=== PATIENT | male | born 1955 | race Caucasian/White ===

== ENCOUNTER 2017-07-28 08:19 | Inpatient (IN) | payer OTHER ==
[2017-07-28 09:26] LABS: BASOPHIL 0.1 % (0-2.0); EOSINOPHIL 3.7 % (0-4.5); MCH 33.3 pg (25.7-33.7); MCHC 34.2 g/dl (32.0-35.9); MEAN CELL VOLUME 97.2 fl (80-96); MEAN PLT VOLUME 7.8 fl (7.5-11.1); NEUTROPHILS 62.4 % (42.8-82.8); PLATELET COUNT 215 K/MM3 (134-434); RDW 12.1 % (11.9-15.9); WHITE BLOOD COUNT 8.6 K/mm3 (4.0-10.8)
--- NOTE | 2017-07-28 09:34 | PDOC ---
History of Present Illness - General Chief Complaint: Shortness of Breath Stated Complaint: dizziness,sob,diaphoretic,ruq pain Time Seen by Provider: 07/28/17 08:21 - History of Present Illness Initial Comments: 07/28/17 09:42 62 M with h/o HTN, HLD, CAD/OH s/p stent in 2011 on plavix, H pylori, presenting to ER with lightheadedness and weakness since last night. Pt states that he is typically an active person who plays tennis regularly. However, last night he began to feel extremely weak. He reports getting short of breath with minimal activity, feeling fatigued just walking to the TV. Pt denies CP. Denies any SOB at rest. Denies leg swelling. Denies F/C. Pt also endorses dark stools x 3 days. He is currently on an herbal colon cleanse, which he reports has given him discolored stools in the past. He has not had colonoscopy or EGD in recent years. Has not been treated for H pylori recently. Past History - Past Medical History Allergies/Adverse Reactions: Allergies Allergy/AdvReac Type Severity Reaction Status Date / Time iodine [Iodine] Allergy Rash Verified 07/28/17 08:23 Home Medications: Ambulatory Orders Atorvastatin Ca [Lipitor (Restricted To Cardiology)] 80 mg PO HS 01/29/12 Lisinopril [Prinivil] 10 mg PO DAILY 03/09/12 Aspirin [ASA] 125 mg PO DAILY 04/08/12 Nebivolol [Bystolic] 10 mg PO HS 04/08/12 Antiox #11/Om3/Dha/Epa/Lut/Joe [Eye Health Adult 50+ Softgel] 1 each PO Brain Boost 07/28/17 Clopidogrel Bisulfate [Plavix -] 75 mg PO DAILY 07/28/17 Herbal Drugs [Colon Herbal Cleanser] 1 each PO 07/28/17 Liver Cleans 07/28/17 Cardiac Disorders: Yes (OH X 4 YEARS AGO) HTN: Yes Hypercholesterolemia: Yes Thyroid Disease: Yes - Surgical History Cardiac Surgery: Yes (CATH,STENT X 1) - Suicide/Smoking/Psychosocial Hx Smoking Status: No Smoking History: Former smoker Years of Tobacco Use: 6 Have you smoked in the past 12 months: No Number of Cigarettes Smoked Daily: 20 If you are a former smoker, when did you quit?: at the age of 18 Information on smoking cessation initiated: No Hx Alcohol Use: Yes (daily 5 beers and wine and beer on weekends) Drug/Substance Use Hx: No Substance Use Type: None Hx Substance Use Treatment: No Review of Systems - Review of Systems Comments:: 07/28/17 09:45 "GENERAL/CONSTITUTIONAL: +weakness, No fever or chills. HEAD, EYES, EARS, NOSE AND THROAT: No change in vision. No ear pain or discharge. No sore throat. CARDIOVASCULAR: No chest pain or shortness of breath. RESPIRATORY: +dyspnea on exertion, No cough, wheezing, or hemoptysis. GASTROINTESTINAL: No nausea, vomiting, diarrhea or constipation. GENITOURINARY: No dysuria, frequency, or change in urination. MUSCULOSKELETAL: No joint or muscle swelling or pain. No neck or back pain. SKIN: No rash NEUROLOGIC: No headache, vertigo, loss of consciousness, or change in strength/ sensation. ENDOCRINE: No increased thirst. No abnormal weight change. HEMATOLOGIC/LYMPHATIC: No anemia, easy bleeding, or history of blood clots. ALLERGIC/IMMUNOLOGIC: No hives or skin allergy. " *Physical Exam - Vital Signs Last Vital Signs Temp Pulse Resp BP Pulse Ox 97.9 F 71 16 159/91 100 07/28/17 08:21 07/28/17 09:27 07/28/17 09:27 07/28/17 09:27 07/28/17 09:27 - Physical Exam Comments: 07/28/17 09:46 "GENERAL: Awake, alert, and fully oriented, in no acute distress HEAD: No signs of trauma EYES: PERRLA, EOMI, sclera anicteric, conjunctiva clear ENT: Auricles normal inspection, hearing grossly normal, nares patent, oropharynx clear without exudates. Moist mucosa NECK: Nontender, no stepoffs, Normal ROM, supple, no lymphadenopathy, JVD, or masses LUNGS: Breath sounds equal, clear to auscultation bilaterally. No wheezes, and no crackles HEART: Regular rate and rhythm, normal S1 and S2, no murmurs, rubs or gallops ABDOMEN: Soft, nontender, normoactive bowel sounds. No guarding, no rebound. No masses EXTREMITIES: Normal range of motion, no edema. No clubbing or cyanosis. No cords, erythema, or tenderness NEUROLOGICAL: Cranial nerves II through XII intact. 5/5 strength and sensation in all extremities, Normal speech, normal gait SKIN: Warm, Dry, normal turgor, no rashes or lesions noted. RECTAL: dark stools, no hematochezia " Heart Score/ECG Review - History History: Moderately suspicious - Electrocardiogram EKG: Non specific repolarization disturbance - Age Age: 45-65 - Risk Factors Risk Factors Heart Score: Yes Hx Hypercholesterolemia, Yes Hx Hypertension Based on the list above the patient has:: >/=3 risk factors or Hx atherosclerotic disease - ECG Impressions Comment:: 07/28/17 09:47 NSR, no MARK/STDs, TWI in I and AVL present, not seen on prior EKG in 2011. Left axis deviation, QRS widening ED Treatment Course - LABORATORY CBC & Chemistry Diagram: 07/29/17 15:00 07/29/17 05:45 - ADDITIONAL ORDERS Additional order review: 07/28/17 09:00 RBC 3.23 L D MCV 97.2 H MCHC 34.2 RDW 12.1 MPV 7.8 D Neutrophils % 62.4 Lymphocytes % 24.3 Monocytes % 9.5 Eosinophils % 3.7 Basophils % 0.1 - RADIOLOGY Radiology Studies Ordered: Category Date Time Status CHEST PA & LAT [RAD] Stat Radiology 07/28/17 09:09 Ordered Medical Decision Making - Medical Decision Making 07/28/17 09:47 62 M with weakness, fatigue, and dyspnea on exertion since last night. Pt with no chest pain, but must r/o OH, as pt has h/o prior OH and new lateral TWI on today's EKG. Also consider symptomatic anemia 2/2 GI bleed given h/o dark stools on plavix. Pt with no PE risk factors and is anticoagulated. No tachypnea , tachycardia, or hypoxia in ER, so PE is unlikely. Will evaluate for infectious process with CXR and UA. - Labs, trop, BNP - Stool guaiac - CXR - Admit to tele 07/28/17 11:01 Pt with guaiac + dark stool. Elevated BUN to Cr ratio suggestive of likely upper GI source. Trop negative. PPI started, will admit for UGIB. Dr. Farr, GI police surgeon, to evaluate pt for EGD. Admitted to hospitalist. Case discussed in detail with admitting physician including history, physical exam and ancillary studies. Admitting physician has assumed care for the patient and will follow all pending diagnostics and complete the evaluation and treatment. *DC/Admit/Observation/Transfer Diagnosis at time of Disposition: Upper GI bleed - Discharge Dispostion Admit: Yes - Attestations Physician Attestion: 07/28/17 11:02 I, Dr. Yossi Ibarra MD, attest that this document has been prepared under my direction and personally reviewed by me in its entirety. I further attest, that it accurately reflects all work, treatment, procedures and medical decision -making performed by me.
[2017-07-28 09:47] LABS: INR 1.06 (0.82-1.09); PROTHROMBIN TIME (PATIENT) 11.8 SEC (10.2-13.0)
[2017-07-28 09:48] LABS: ALBUMIN 3.7 g/dl (3.5-5.0); ALK PHOS 47 U/L (32-92); ANION GAP 6 (8-16); CALCIUM 10.4 mg/dl (8.4-10.2); CO2 27 mmol/L (22-28); CPK 182 IU/L (39-308); CREATININE 0.8 mg/dl (0.6-1.3); GLUCOSE,RANDOM 117 mg/dl (74-106); SGOT/AST 26 U/L (10-42); SGPT/ALT 31 U/L (10-40); TOT PROT 5.7 g/dl (6.4-8.3)
[2017-07-28 09:51] LABS: STOOL FOR OCCULT BLOOD POSITIVE (NEGATIVE)
[2017-07-28] MEDS ORDERED: PANTOPRAZOLE SODIUM 40 MG in SODIUM CHLORIDE 100 ML IVPB ONE (09:53)
[2017-07-28] MEDS ORDERED: PANTOPRAZOLE SODIUM 40 MG VIAL ONE (09:55)
[2017-07-28 10:04] LABS: URINE APPEARANCE Clear; URINE BILIRUBIN Negative (NEGATIVE); URINE BLOOD Negative (NEGATIVE); URINE GLUCOSE (UA) Negative (NEGATIVE); URINE KETONE Negative (NEGATIVE); URINE LEUK ESTERASE Negative (NEGATIVE); URINE NITRITE Negative (NEGATIVE); URINE PROTEIN Negative (NEGATIVE); URINE UROBILINOGEN 0.2 (0.2-1.0)
[2017-07-28 10:07] LABS: URINE COLOR YELLOW
[2017-07-28 10:26] LABS: TROPONIN I (DFP) < 0.03 ng/ml (0.03-0.50)
[2017-07-28] MEDS ORDERED: SODIUM CHLORIDE 1,000 ML IV STA (10:29)
--- NOTE | 2017-07-28 12:02 | HP ---
CHIEF COMPLAINT: CARETR,dizziness and weakness PCP: GI Dr. [place] cardiology Dr. Powers HISTORY OF PRESENT ILLNESS: presenting to ER with lightheadedness and weakness since last night. Pt states that he is typically an active person who plays tennis regularly. However, last night he began to feel extremely weak. He reports getting short of breath with minimal activity, feeling fatigued just walking to the TV. Pt denies CP. Denies any SOB at rest. Denies leg swelling. Denies F/ Pt also endorses dark stools x 3 days. He is currently on an herbal colon cleanse, which he reports has given him discolored stools in the past. He has not had colonoscopy or EGD in recent years. Has not been treated for H pylori recently. This is a 62 M with h/o HTN, HLD, CAD/[place] s/p stent in 2011 on Plavix,hx of H pylori, GERD, who presents to ER complains of worsening lightheadedness, weakness, CARTER with minimal activity,palpitations,diaphoresis,mild RUQ pain and chronic GERD symptoms,denies cp, N/V/D,urinary symptoms,urinary symptoms or rectal bleed. Pt also reports of having dark stool for the last 3 days, currently on an herbal colon cleanse, which he reports has discolored stools in the past. Denies recent EGD/ colonoscopy. ER course was notable for: (1)CxR: No acute pathology (2)EKG: SR with T wave inversion (3) Stool OB - positive Recent Travel: No PAST MEDICAL HISTORY: See above PAST SURGICAL HISTORY: deviated septal sx > 10 yrs ago Social History: Smoking:None Alcohol: Yes- 3 cans of beer daily and half a bottle of wine every other day Drugs: None Family History: Father : Bleeding stomack ulcer, HTN, Smoker Mother : HTN, DM, HDL, and cataract Brother - Had WI with stent Maternal grandfather - WI Allergies iodine [Iodine] Allergy (Verified 07/28/17 08:23) Rash HOME MEDICATIONS: Home Medications Medication Instructions Recorded Atorvastatin Ca [Lipitor 80 mg PO HS 01/29/12 (Restricted To Cardiology)] Lisinopril [Prinivil] 10 mg PO DAILY 03/09/12 Aspirin [ASA] 125 mg PO DAILY 04/08/12 Nebivolol [Bystolic] 10 mg PO HS 04/08/12 Antiox #11/Om3/Dha/Epa/Lut/Joe 1 each PO 07/28/17 [Eye Health Adult 50+ Softgel] Brain Boost 07/28/17 Clopidogrel Bisulfate [Plavix -] 75 mg PO DAILY 07/28/17 Herbal Drugs [Colon Herbal 1 each PO 07/28/17 Cleanser] Liver Cleans 07/28/17 REVIEW OF SYSTEMS CONSTITUTIONAL: C/o generalized weakness Absent: fever, chills, diaphoresis, malaise, loss of appetite, weight change HEENT: Absent: rhinorrhea, nasal congestion, throat pain, throat swelling, difficulty swallowing, mouth swelling, ear pain, eye pain, visual changes CARDIOVASCULAR: Absent: chest pain, syncope, palpitations, irregular heart rate, lightheadedness , peripheral edema RESPIRATORY: + dyspnea with exertion Absent: cough, shortness of breath, , orthopnea, wheezing, stridor, hemoptysis GASTROINTESTINAL: Absent: abdominal pain, abdominal distension, nausea, vomiting, diarrhea, constipation, melena, hematochezia GENITOURINARY: Absent: dysuria, frequency, urgency, hesitancy, hematuria, flank pain, genital pain MUSCULOSKELETAL: Absent: myalgia, arthralgia, joint swelling, back pain, neck pain SKIN: Absent: rash, itching, pallor HEMATOLOGIC/IMMUNOLOGIC: Absent: easy bleeding, easy bruising, lymphadenopathy, frequent infections ENDOCRINE: Absent: unexplained weight gain, unexplained weight loss, heat intolerance, cold intolerance NEUROLOGIC: Absent: headache, focal weakness or paresthesias, dizziness, unsteady gait, seizure, mental status changes, bladder or bowel incontinence PSYCHIATRIC: Absent: anxiety, depression, suicidal or homicidal ideation, hallucinations. PHYSICAL EXAMINATION Vital Signs - 24 hr 07/28/17 07/28/17 07/28/17 08:21 09:27 10:37 Temperature 97.9 F Pulse Rate 58 L Pulse Rate [ 71 62 Apical] Respiratory 15 16 16 Rate Blood Pressure 138/85 Blood Pressure 159/91 120/80 [Arm] O2 Sat by Pulse 100 100 100 Oximetry (%) GENERAL: Awake, alert, and fully oriented, in no acute distress. HEAD: Normal with no signs of trauma. EYES: Pupils equal, round and reactive to light, extraocular movements intact, sclera anicteric, conjunctiva clear. No lid lag. EARS, NOSE, THROAT: Ears normal, nares patent, oropharynx clear without exudates. Moist mucous membranes. NECK: Normal range of motion, supple without lymphadenopathy, JVD, or masses. LUNGS: Breath sounds equal, clear to auscultation bilaterally. No wheezes, and no crackles. No accessory muscle use. HEART: Regular rate and rhythm, normal S1 and S2 without murmur, rub or gallop. ABDOMEN: Soft, nontender, not distended, normoactive bowel sounds, no guarding, no rebound, no masses. No hepatomegaly or splenomegaly. MUSCULOSKELETAL: Normal range of motion at all joints. No bony deformities or tenderness. No CVA tenderness. UPPER EXTREMITIES: 2+ pulses, warm, well-perfused. No cyanosis. No clubbing. No peripheral edema. LOWER EXTREMITIES: 2+ pulses, warm, well-perfused. No calf tenderness. No peripheral edema. NEUROLOGICAL: Cranial nerves II-XII intact. Normal speech. Normal gait. PSYCHIATRIC: Cooperative. Good eye contact. Appropriate mood and affect. SKIN: Warm, dry, normal turgor, no rashes or lesions noted, normal capillary refill. Laboratory Results - last 24 hr 07/28/17 07/28/17 07/28/17 09:00 09:00 09:00 WBC 8.6 RBC 3.23 L D Hgb 10.7 L D Hct 31.4 L D MCV 97.2 H MCH 33.3 MCHC 34.2 RDW 12.1 Plt Count 215 MPV 7.8 D Neutrophils % 62.4 Lymphocytes % 24.3 Monocytes % 9.5 Eosinophils % 3.7 Basophils % 0.1 PT with INR 11.8 INR 1.06 PTT (Actin FS) 25.0 L Sodium 134 L Potassium 4.2 Chloride 101 Carbon Dioxide 27 Anion Gap 6 L BUN 47 H D Creatinine 0.8 Creat Clearance w eGFR > 60 Random Glucose 117 H Calcium 10.4 H Total Bilirubin 1.0 D AST 26 D ALT 31 D Alkaline Phosphatase 47 Creatine Kinase 182 Creatine Kinase Index 2.6 CK-MB (CK-2) 4.9 H Troponin I < 0.03 L Total Protein 5.7 L Albumin 3.7 Lipase Urine Color Urine Appearance Urine pH Ur Specific [place] Urine Protein Urine Glucose (UA) Urine Ketones Urine Blood Urine Nitrite Urine Bilirubin Urine Urobilinogen Ur Leukocyte Esterase Stool Occult Blood 07/28/17 07/28/17 09:00 09:25 WBC RBC Hgb Hct MCV MCH MCHC RDW Plt Count MPV Neutrophils % Lymphocytes % Monocytes % Eosinophils % Basophils % PT with INR INR PTT (Actin FS) Sodium Potassium Chloride Carbon Dioxide Anion Gap BUN Creatinine Creat Clearance w eGFR Random Glucose Calcium Total Bilirubin AST ALT Alkaline Phosphatase Creatine Kinase Creatine Kinase Index CK-MB (CK-2) Troponin I Total Protein Albumin Lipase 24 Urine Color Yellow Urine Appearance Clear Urine pH 7.0 Ur Specific [place] 1.020 Urine Protein Negative Urine Glucose (UA) Negative Urine Ketones Negative Urine Blood Negative Urine Nitrite Negative Urine Bilirubin Negative Urine Urobilinogen 0.2 Ur Leukocyte Esterase Negative Stool Occult Blood Positive ASSESSMENT/PLAN: This is a 62 M with h/o HTN, HLD, CAD/[place] s/p stent in 2011 on Plavix,hx of H pylori and GERD,who presents to ER c/o worsening weakness, dizziness,CARTER, palpitations,diaphoresis,mild RUQ pain and chronic GERD symptoms,denies cp, N/V/ D,urinary symptoms or urinary symptoms. * GI bleed - stool OB positive in ER - will hold off on ASA, plavix - started on PPI - GI consulted - for EGD today - will keep pt NPO - CBC stable now - 10.7/31.4 (baseline in 2011 14.9) will f/u on CBC - consent obtained for blood transfusion * HTN will continue on home meds , Lisinopril and Bystolic - will monitor BP closely * HDL- will resume on Statin once PO sathya well * CAD, s/p stent in 2011 -will cont on BB, Statin - will hold off on ASA, Plavix in view of GI bleed - telemetry monitoring - EKG- SR - T wave inversion - asymptomatic - will check serial cardiac enzymes - out pt cardiology Dr. Powers F/E/N: IV hydration VTE prophylaxis - SCD in view of bleeding. Visit type - Emergency Visit Emergency Visit: Yes Care time: The patient presented to the Emergency Department on the above date and was hospitalized for further evaluation of their emergent condition. - New Patient This patient is new to me today: Yes Date on this admission: 07/28/17 - Critical Care Critical Care patient: No
--- NOTE | 2017-07-28 12:19 | CON.GI ---
Consult Consult Specialty:: GI Referred by:: Dr Ibarra Reason for Consultation:: upper GI bleeding, acute blood loss anemia - History of Present Illness History of Present Illness: A 62 yo male who came to ED with c/o fatigue and lightheadedness on standing up. No chest pain, nausea, vomiting, palpations, diaphoresis, or numbness. On questioning reports 3 days of dark, tarry stools. Deneis maria teresa hematocheziam hematemesis, diarrhea, dysphasia, odynophagia. Reports history of H. pylori infection about 20 y. ago. Takes daily NSAIDs for pains and aches, and tums at night for "acid reflux". No significant weight loss. No history of colonoscopy. - History Source History Provided By: Patient - Past Medical History Cardio/Vascular: Yes: [place] Gastrointestinal: Yes: Other (h. pylori infection 20 y ago) Hepatobiliary: No: Cirrhosis, Cholelithiasis, Hepatitis B, Hepatitis C - Past Surgical History Additional Surgical History: EGD 20 y ago - Alcohol/Substance Use Hx Alcohol Use: Yes (daily 5 beers and wine and beer on weekends) - Smoking History Smoking history: Former smoker Have you smoked in the past 12 months: No Aproximately how many cigarettes per day: 20 If you are a former smoker, when did you quit?: at the age of 18 Home Medications - Allergies Allergies/Adverse Reactions: Allergies Allergy/AdvReac Type Severity Reaction Status Date / Time iodine [Iodine] Allergy Rash Verified 07/28/17 08:23 - Home Medications Home Medications: Ambulatory Orders Atorvastatin Ca [Lipitor (Restricted To Cardiology)] 80 mg PO HS 01/29/12 Lisinopril [Prinivil] 10 mg PO DAILY 03/09/12 Aspirin [ASA] 125 mg PO DAILY 04/08/12 Nebivolol [Bystolic] 10 mg PO HS 04/08/12 Antiox #11/Om3/Dha/Epa/Lut/Joe [Eye Health Adult 50+ Softgel] 1 each PO Brain Boost 07/28/17 Clopidogrel Bisulfate [Plavix -] 75 mg PO DAILY 07/28/17 Herbal Drugs [Colon Herbal Cleanser] 1 each PO 07/28/17 Liver Cleans 07/28/17 Family Disease History - Family Disease History Family History: Unremarkable Review of Systems - Review of Systems Constitutional: reports: Malaise, Weakness. denies: Chills, Diaphoresis, Fever , Lethargy, Loss of Appetite, Night Sweats, Unintentional Wgt. Loss Eyes: reports: No Symptoms HENT: reports: No Symptoms Neck: reports: No Symptoms Respiratory: denies: Cough, SOB, SOB on Exertion, Wheezing Gastrointestinal: reports: Indigestion, Melena. denies: Abdominal Pain, Bloating, Constipation, Diarrhea, Dysphagia, Nausea, Rectal Bleeding, Vomiting, Vomiting Blood Musculoskeletal: reports: Joint Pain (takes NSAIDs) Neurological: denies: Syncope, Unsteady Gait Hematology/Lymphatic: denies: Easily Bruised, Excessive Bleeding Physical Exam-GI Vital Signs: Vital Signs Temperature 97.9 F 07/28/17 08:21 Pulse Rate 62 07/28/17 10:37 Respiratory Rate 16 07/28/17 10:37 Blood Pressure 120/80 07/28/17 10:37 O2 Sat by Pulse Oximetry (%) 100 07/28/17 10:37 Constitutional: Yes: Well Nourished, No Distress, Calm Eyes: Yes: Conjunctiva Clear HENT: Yes: Atraumatic Neck: Yes: Supple Cardiovascular: Yes: Regular Rate and Rhythm Respiratory: Yes: Regular Gastrointestinal Inspection: No: Distention ...Auscultate: Yes: Normoactive Bowel Sounds ...Palpate: Yes: Soft. No: Firm/Rigid, Guarding, Mass, Pulsatile Mass, Splenomegaly, Tenderness Musculoskeletal: Yes: WNL Extremities: Yes: WNL Neurological: Yes: Alert, Oriented Labs: CBC, BMP 07/28/17 09:00 07/28/17 09:00 INR, PTT INR 1.06 (0.82-1.09) 07/28/17 09:00 Laboratory Tests 07/28/17 07/28/17 07/28/17 09:00 09:00 09:00 WBC 8.6 RBC 3.23 L D Hgb 10.7 L D Hct 31.4 L D MCV 97.2 H MCH 33.3 MCHC 34.2 RDW 12.1 Plt Count 215 MPV 7.8 D Neutrophils % 62.4 Lymphocytes % 24.3 Monocytes % 9.5 Eosinophils % 3.7 Basophils % 0.1 PT with INR 11.8 INR 1.06 PTT (Actin FS) 25.0 L Sodium 134 L Potassium 4.2 Chloride 101 Carbon Dioxide 27 Anion Gap 6 L BUN 47 H D Creatinine 0.8 Creat Clearance w eGFR > 60 Random Glucose 117 H Calcium 10.4 H Total Bilirubin 1.0 D AST 26 D ALT 31 D Alkaline Phosphatase 47 Creatine Kinase 182 Creatine Kinase Index 2.6 CK-MB (CK-2) 4.9 H Troponin I < 0.03 L Total Protein 5.7 L Albumin 3.7 Lipase Urine Color Urine Appearance Urine pH Ur Specific [place] Urine Protein Urine Glucose (UA) Urine Ketones Urine Blood Urine Nitrite Urine Bilirubin Urine Urobilinogen Ur Leukocyte Esterase Stool Occult Blood 07/28/17 07/28/17 09:00 09:25 WBC RBC Hgb Hct MCV MCH MCHC RDW Plt Count MPV Neutrophils % Lymphocytes % Monocytes % Eosinophils % Basophils % PT with INR INR PTT (Actin FS) Sodium Potassium Chloride Carbon Dioxide Anion Gap BUN Creatinine Creat Clearance w eGFR Random Glucose Calcium Total Bilirubin AST ALT Alkaline Phosphatase Creatine Kinase Creatine Kinase Index CK-MB (CK-2) Troponin I Total Protein Albumin Lipase 24 Urine Color Yellow Urine Appearance Clear Urine pH 7.0 Ur Specific [place] 1.020 Urine Protein Negative Urine Glucose (UA) Negative Urine Ketones Negative Urine Blood Negative Urine Nitrite Negative Urine Bilirubin Negative Urine Urobilinogen 0.2 Ur Leukocyte Esterase Negative Stool Occult Blood Positive Problem List - Problems (1) Gastrointestinal hemorrhage with melena Code(s): K92.1 - MELENA (2) NSAID long-term use Code(s): Z79.1 - CRIME ANALYST (CURRENT) USE OF NON-STEROIDAL NON-INFLAM (NSAID) (3) Anemia associated with acute blood loss Code(s): D62 - ACUTE POSTHEMORRHAGIC ANEMIA (4) Duodenal hemorrhage Code(s): K92.2 - GASTROINTESTINAL HEMORRHAGE, UNSPECIFIED (5) Esophagitis determined by endoscopy Code(s): K20.9 - ESOPHAGITIS, UNSPECIFIED Assessment/Plan s/p EGD with control of bleeding 2 5 mm shallow, bulb/1st portion actively oozing from visible vessel ulcers found and injected with a total of 12 cc 1:10,000 epi. Complete hemostasis was achieved. Resolution clips, despite multiple attempts, could not be deployed due to ulcers specifically difficult location. Admit to ICU for, at least, 24 hours observation. Continue PPI IV and keep NPO today CBC today and in AM Stop all NSAIDs Discussed with the patent and his
[2017-07-28] MEDS ORDERED: EPINEPHrine/PF 1 MG/1 ML (1:1,000) AMPULE ONE ×2 (13:07→13:08)
[2017-07-28] MEDS ORDERED: PROPOFOL 20 ML ONE ×2 (13:09→13:31)
--- NOTE | 2017-07-28 14:13 | PROC ---
Endoscopy Procedure Endoscopy procedure completed. Please see scanned procedure report.
[2017-07-28 15:00] LABS: MCH 33.5 pg (25.7-33.7); MCHC 34.4 g/dl (32.0-35.9); MEAN CELL VOLUME 97.4 fl (80-96); MEAN PLT VOLUME 7.3 fl (7.5-11.1); PLATELET COUNT 196 K/MM3 (134-434); RDW 12.2 % (11.9-15.9); WHITE BLOOD COUNT 11.6 K/mm3 (4.0-10.8)
--- NOTE | 2017-07-28 16:48 | CONSULT ---
Consultation: REQUESTING PROVIDER: Dr. Farr CONSULT REQUEST: We have been asked to medically evaluate this patient for s/p EGD for GI bleed. HISTORY OF PRESENT ILLNESS: Patient is a 62 year old male with a PMHx of HTN, HLD, CAD s/p ME w/ stents five years ago on Plavix, H.Pylori who presented with lightheadedness and weakness that started suddenly last night. Patient then states feeling short of breath and fatigued with minimal activity associated with diaphoresis and palpitations. Patients reports similar symptoms in the past when he had an ME 5 years ago, which prompted this hospital visit. Patient also reports having dark colored stools for the last three days, however, he states having dark stools when taking an herbal colon cleanse, which he is currently taking. Patient does admit to daily use of NSAIDS for years now due to "feeling sore" at the end of the day due to his job, which requires him to move around excessively. Patient states taking 4 Aleve's every other day and Excedrin almost daily with daily coffee. Patient states having EGD/Colonoscopy over 10 years ago. Patient was taken to the OR for EGD and was found to have two 5mm shallow bleeding ulcers in the bulb and 1st portion but unsuccessful clipping due to the locations. However, complete hemostasis was achieved with epi injection. Otherwise, patient denies chest pain, leg pain, hematemesis, loss of consciousness, acute vision loss. Patient admitted to the ICU for 24 hour observation. REVIEW OF SYSTEMS: CONSTITUTIONAL: Present: diaphoresis, generalized weakness, malaise Absent: fever, chills, loss of appetite, weight change HEENT: Absent: rhinorrhea, nasal congestion, throat pain, throat swelling, difficulty swallowing, mouth swelling, ear pain, eye pain, visual changes CARDIOVASCULAR: Present: palpitations, lightheadedness Absent: chest pain, syncope, irregular heart rate, peripheral edema RESPIRATORY: Present: shortness of breath, dyspnea with exertion Absent: cough, orthopnea, wheezing, stridor, hemoptysis GASTROINTESTINAL: Present: abdominal pain, melena Absent: abdominal distension, nausea, vomiting, diarrhea, constipation, hematochezia GENITOURINARY: Absent: dysuria, frequency, urgency, hesitancy, hematuria, flank pain, genital pain MUSCULOSKELETAL: Absent: myalgia, arthralgia, joint swelling, back pain, neck pain SKIN: Absent: rash, itching, pallor HEMATOLOGIC/IMMUNOLOGIC: Absent: easy bleeding, easy bruising, lymphadenopathy, frequent infections ENDOCRINE: Absent: unexplained weight gain, unexplained weight loss, heat intolerance, cold intolerance NEUROLOGIC: Absent: headache, focal weakness or paresthesias, dizziness, unsteady gait, seizure, mental status changes, bladder or bowel incontinence PSYCHIATRIC: Absent: anxiety, depression, suicidal or homicidal ideation, hallucinations. PHYSICAL EXAMINATION Vital Signs - 24 hr 07/28/17 07/28/17 07/28/17 13:50 13:55 14:00 Temperature 97.5 F L 97.5 F L 97.5 F L Pulse Rate 68 62 61 Respiratory 19 19 20 Rate Blood Pressure 133/31 140/74 127/49 O2 Sat by Pulse 100 100 100 Oximetry (%) 07/28/17 07/28/17 07/28/17 14:05 14:15 14:30 Temperature 97.5 F L 97.5 F L 97.5 F L Pulse Rate 59 L 58 L 54 L Respiratory 23 21 17 Rate Blood Pressure 108/47 96/47 90/45 O2 Sat by Pulse 100 100 100 Oximetry (%) GENERAL: Awake, alert, and fully oriented, in no acute distress. HEAD: Normal with no signs of trauma. EYES: Pupils equal, round and reactive to light, extraocular movements intact, sclera anicteric, conjunctiva clear. EARS, NOSE, THROAT:Oropharynx clear without exudates. Moist mucous membranes. NECK: Normal range of motion, supple without lymphadenopathy, JVD, or masses. LUNGS: Breath sounds equal, clear to auscultation bilaterally. No wheezes, and no crackles. No accessory muscle use. HEART: Regular rate and rhythm, normal S1 and S2 without murmur, rub or gallop. ABDOMEN: Soft, nontender, not distended, normoactive bowel sounds, no guarding, no rebound, no masses. No hepatomegaly or splenomegaly. MUSCULOSKELETAL: No bony deformities or tenderness. No CVA tenderness. UPPER EXTREMITIES: No peripheral edema. LOWER EXTREMITIES: No peripheral edema. NEUROLOGICAL: Cranial nerves II-XII intact. Normal speech. Motor strength 5/5 bilaterally, sensory intact PSYCHIATRIC: Cooperative. Good eye contact. Appropriate mood and affect. SKIN: Warm, dry, normal turgor, no rashes or lesions noted. Laboratory Results - last 24 hr 07/28/17 14:55 WBC 11.6 H D RBC 2.53 L D Hgb 8.5 L D Hct 24.6 L D MCV 97.4 H MCH 33.5 MCHC 34.4 RDW 12.2 Plt Count 196 MPV 7.3 L Active Medications Generic Name Dose Route Start Last Admin Trade Name Freq PRN Reason Stop Dose Admin Atorvastatin Calcium 80 mg 07/29/17 22:00 Lipitor - PO HS RAYNA Chlorhexidine Gluconate 1 applic 07/28/17 22:00 Hibiclens For Decolonization - TP HS [facility] Sodium Chloride 1,000 mls @ 75 mls/hr 07/28/17 12:45 Normal Saline - IV ASDIR RAYNA Lisinopril 10 mg 07/29/17 10:00 Prinivil PO DAILY RAYNA Mupirocin 1 applic 07/28/17 22:00 Bactroban Ointment (For Decolonization) - NS 08/02/17 21:59 BID RAYNA Nebivolol 10 mg 07/29/17 10:00 Bystolic - PO DAILY RAYNA Pantoprazole Sodium 40 mg 07/28/17 22:00 Protonix Iv IVPUSH 07/31/17 23:59 BID RAYNA IMAGES: ASSESSMENT/PLAN: Patient is a 62 year old male with a PMHx of H.Pylori, GERD, Chronic NSAID use and CAD on Plavix who presented for dizziness, weakness, shortness of breath, dyspnea on exertion, and dark bloody stools. Patient was taken to the OR for EGD and was found to have two duodenal ulcers. Patient admitted to ICU for further monitoring and management. Neuro -AAOx3 Gastroenterology #Upper GI Bleed Secondary to 2 Bleeding Duodenal Ulcers -S/P EGD with complete hemostasis achieved -Continue protonix 40mg BID -Continue IV NS @75mls/hr -Hold ASA and Plavix. No Anticoagulations -Avoid all NSAIDS -Keep NPO overnight and may resume clears in the morning. -CBC stable prior to procedure (H&H 10.7/31.4). Repeat CBC and troponins now. Then again in the morning Cardiology #CAD s/p ME/stents 5 years ago -Hold ASA and Plavix due to GI bleed -Will continue NICANOR inhibitor and Beta andrez -Serial Troponins ordered -Continuous cardiac monitoring #HTN-controlled -Continue Lisinopril 10mg daily -Continue Bystolic 10mg daily -Continue to monitor BP #HLD -Continue Lipitor 80mg daily Hematology #Anemia secondary to acute blood loss -Hemoglobin and Hematocrit on initial presentation 10.7/31.4. Repeat CBC after procedure 8.5/24.6. Second repeat 8.8/25.6 -Another repeat CBC ordered -If hemoglobin <8.0, will transfuse PRBC -Continue to monitor for any GI bleed and serial CBC's. Pulmonology -No history of COPD/Emphysema -02 PRN -Maintain 02 >95% F/E/N -IV NS @75mls/hr -Electrolytes wnl -NPO overnight and clear liquids in the morning Prophylaxis -Low risk due to GI bleed. SCD's for DVT. Hold all AC -Protonix 40mg IVP BID for GI Disposition -Full code -Will monitor overnight for any bleeds. Repeat cardiac enzymes and CBC Visit type - Emergency Visit Emergency Visit: Yes ED Registration Date: 07/28/17 Care time: The patient presented to the Emergency Department on the above date and was hospitalized for further evaluation of their emergent condition. - New Patient This patient is new to me today: Yes Date on this admission: 07/28/17 - Critical Care Critical Care patient: Yes Total Critical Care Time (in minutes): 45 Critical Care Statement: The care of this patient involved high complexity decision making to prevent further life threatening deterioration of the patient 's condition and/or to evaluate & treat vital organ system(s) failure or risk of failure.
[2017-07-28 16:55] VITALS: BMI 28.7
[2017-07-28] MEDS ORDERED: FLU VACCINE QUAD 60 MCG/0.5 ML (MDV 17-18) IM ONE (16:55)
[2017-07-28] MEDS: SODIUM CHLORIDE 1,000 ML IV SCH (17:19)
[2017-07-28 17:28] LABS: MCH 33.6 pg (25.7-33.7); MCHC 34.6 g/dl (32.0-35.9); MEAN CELL VOLUME 97.1 fl (80-96); MEAN PLT VOLUME 7.1 fl (7.5-11.1); PLATELET COUNT 178 K/MM3 (134-434); RDW 13.1 % (11.9-15.9); WHITE BLOOD COUNT 11.2 K/mm3 (4.0-10.0)
--- NOTE | 2017-07-28 20:28 | CONSULT ---
Consult Consult Specialty:: Pulm/CCM Reason for Consultation:: GIB s/p endoscopyand clipping of bleeding gastric ulcers - History of Present Illness Chief Complaint: Weakness History of Present Illness: 62yom with a PMHx of HTN, HLD, CAD s/p [place] w/ stents on Plavix, GERD, H.Pylori who presented to ED with lightheadedness and weakness x1d, decreased exercise tolerance with SOB, weakness , diaphoresis and palpitations. Also with c/o dark stools x3 days. 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 On EGD in the OR he was found to have two 5mm shallow bleeding gastric ulcers in the bulb and first portion of the stomach. Complete hemostasis was acheived with epi injection but clipping was unsuccessful d/t position of the ulcers. Labs notable for uptrending trop and hgb 10.6->8.8. He was transferred to ICU for post procedure monitoring. In ICU he was A+O x3 HR 78, BP 125/70, RR21, O2 sat 100% on 2L NCO2. No BM as yet. No c/o chest pain or abd pain. Kept NPO for now. Follow CBC and troponin q4 -8. - History Source History Provided By: Patient, Medical Record Limitations to Obtaining History: No Limitations - Past Medical History Cardio/Vascular: Yes: HTN, Hyperlipdemia, MS Gastrointestinal: Yes: GERD, Other (h. pylori infection 20 y ago) Hepatobiliary: No: Cirrhosis, Cholelithiasis, Hepatitis B, Hepatitis C - Past Surgical History Additional Surgical History: EGD 20 y ago - Alcohol/Substance Use Hx Alcohol Use: Yes (daily 5 beers and wine and beer on weekends) - Smoking History Smoking history: Former smoker Have you smoked in the past 12 months: No Aproximately how many cigarettes per day: 20 If you are a former smoker, when did you quit?: at the age of 18 - Social History Usual Living Arrangement: With Spouse History of Recent Travel: No Home Medications - Allergies Allergies/Adverse Reactions: Allergies Allergy/AdvReac Type Severity Reaction Status Date / Time iodine [Iodine] Allergy Rash Verified 07/28/17 08:23 - Home Medications Home Medications: Ambulatory Orders Atorvastatin Ca [Lipitor (Restricted To Cardiology)] 80 mg PO HS 01/29/12 Lisinopril [Prinivil] 10 mg PO DAILY 03/09/12 Aspirin [ASA] 125 mg PO DAILY 04/08/12 Nebivolol [Bystolic] 10 mg PO HS 04/08/12 Antiox #11/Om3/Dha/Epa/Lut/Joe [Eye Health Adult 50+ Softgel] 1 each PO Brain Boost 07/28/17 Clopidogrel Bisulfate [Plavix -] 75 mg PO DAILY 07/28/17 Herbal Drugs [Colon Herbal Cleanser] 1 each PO 07/28/17 Liver Cleans 07/28/17 Family Disease History - Family Disease History Family Disease History: Other: Father (Gastric ulcers) Review of Systems - Review of Systems Constitutional: reports: Lethargy, Weakness Eyes: reports: No Symptoms HENT: reports: No Symptoms Neck: reports: No Symptoms Cardiovascular: reports: Shortness of Breath Respiratory: reports: No Symptoms Gastrointestinal: reports: Abdominal Pain, Indigestion Genitourinary: reports: No Symptoms Neurological: reports: No Symptoms Hematology/Lymphatic: reports: No Symptoms Psychiatric: reports: No Symptoms Pain Intensity: 0 Physical Exam Vital Signs: Vital Signs Temperature 99 F 07/28/17 17:21 Pulse Rate 72 07/28/17 19:00 Respiratory Rate 18 07/28/17 19:00 Blood Pressure 118/60 07/28/17 19:00 O2 Sat by Pulse Oximetry (%) 100 07/28/17 16:40 Constitutional: Yes: Well Nourished, No Distress, Calm Eyes: Yes: WNL HENT: Yes: Normocephalic Neck: Yes: WNL, Supple Cardiovascular: Yes: Regular Rate and Rhythm, S1, S2, Other (occasional unifocal PVC) Respiratory: Yes: Regular, CTA Bilaterally Gastrointestinal: Yes: Normal Bowel Sounds, Soft Renal/: Yes: WNL Musculoskeletal: Yes: WNL Extremities: Yes: WNL Edema: No Peripheral Pulses WNL: Yes Integumentary: Yes: WNL Labs: CBC, BMP 07/28/17 16:30 Problem List - Problems (1) Anemia associated with acute blood loss Code(s): D62 - ACUTE POSTHEMORRHAGIC ANEMIA (2) Duodenal hemorrhage Code(s): K92.2 - GASTROINTESTINAL HEMORRHAGE, UNSPECIFIED (3) Esophagitis determined by endoscopy Code(s): K20.9 - ESOPHAGITIS, UNSPECIFIED (4) Gastrointestinal hemorrhage with melena Code(s): K92.1 - MELENA (5) NSAID long-term use Code(s): Z79.1 - HALFWAY (CURRENT) USE OF NON-STEROIDAL NON-INFLAM (NSAID) (6) Upper GI bleed Code(s): K92.2 - GASTROINTESTINAL HEMORRHAGE, UNSPECIFIED Assessment/Plan 62yom with PMHx HTN, HLD, CAD, [place] s/p stents on Plavix, GERD, s/p H Pylori treatment admitted with symptomatic anemia in setting of upper GIB. Transferred to ICU after EGD and stabilization of bleeding gastric ulcers for observation. Plan: -Monitor HD -Hgb q6 -Transfuse for Hgb<8 -Monitor troponin -O2 support with NCO2 for now -Cardiology consult -Cont PPI BID -NPO for now -DVT proph with SCD
[2017-07-28] MEDS: CHLORHEXIDINE GLUCONATE 4% CLEANSER FOR DECOLONIZATION TP SCH (21:50)
[2017-07-28] MEDS: PANTOPRAZOLE SODIUM 40 MG VIAL IVPUSH SCH (21:50)
[2017-07-28] MEDS: MUPIROCIN 2% TOPICAL OINTMENT FOR DECOLONIZATION NS SCH (21:50)
[2017-07-29 00:17] LABS: MCH 33.1 pg (25.7-33.7); MCHC 34.4 g/dl (32.0-35.9); MEAN PLT VOLUME 7.6 fl (7.5-11.1); PLATELET COUNT 159 K/MM3 (134-434); RDW 12.5 % (11.9-15.9); WHITE BLOOD COUNT 13.4 K/mm3 (4.0-10.0)
[2017-07-29 06:01] LABS: MCH 34.2 pg (25.7-33.7); MCHC 35.8 g/dl (32.0-35.9); MEAN CELL VOLUME 95.5 fl (80-96); PLATELET COUNT 149 K/MM3 (134-434); RDW 12.9 % (11.9-15.9)
[2017-07-29 06:24] LABS: ANION GAP 7 (8-16); CALCIUM 7.9 mg/dL (8.5-10.1); CO2 28 mmol/L (21-32); GLUCOSE,RANDOM 109 mg/dL (74-106); MAGNESIUM 1.3 mg/dL (1.8-2.4)
[2017-07-29 06:30] LABS: CREATININE 0.8 mg/dL (0.7-1.3); PHOSPHOROUS 3.2 mg/dL (2.5-4.9)
[2017-07-29 06:59] LABS: TROPONIN I 0.02 ng/ml (0.00-0.05)
--- NOTE | 2017-07-29 08:47 | PN ---
Progress Note (short form) - Note Progress Note: Seen and examined in the ICU HGB stable after EGD: found bleeding gastric ulcer injected w/ EPI tolerating clears troponin neg x3 denies: CP/SOB/RUDOLPH/F/C/N/V/diarrhea/melena Current Medications Atorvastatin Calcium (Lipitor -) 80 mg PO HS RAYNA Chlorhexidine Gluconate (Hibiclens For Decolonization -) 1 applic TP HS RAYNA Last Admin: 07/28/17 21:50 Dose: 1 applic Sodium Chloride (Normal Saline -) 1,000 mls @ 75 mls/hr IV ASDIR RAYNA Last Admin: 07/28/17 17:19 Dose: 75 mls/hr Lisinopril (Prinivil) 10 mg PO DAILY RAYNA Mupirocin (Bactroban Ointment (For Decolonization) -) 1 applic NS BID RAYNA Stop: 08/02/17 21:59 Last Admin: 07/28/17 21:50 Dose: 1 applic Nebivolol (Bystolic -) 10 mg PO DAILY RAYNA Pantoprazole Sodium (Protonix Iv) 40 mg IVPUSH BID RAYNA Stop: 07/31/17 23:59 Last Admin: 07/28/17 21:50 Dose: 40 mg Vital Signs Period Temp Pulse Resp BP Sys/Dickerson Pulse Ox Last 24 Hr 97.5 F-99 F 53-85 16-23 90-159/31-91 97-100 Intake & Output 07/26/17 07/27/17 07/28/17 07/29/17 23:59 23:59 23:59 23:59 Intake Total 2600 900 Output Total 1450 600 Balance 1150 300 Weight 96.162 kg General: awake, alert and cooperative HEENT: PERRL CV: s1, s2 RRR Pulm: CTA Ext: WWP +2 pulses Neuro: grossly intact CBCD WBC 11.0 K/mm3 (4.0-10.0) H 07/29/17 05:45 RBC 2.27 M/mm3 (4.00-5.60) L 07/29/17 05:45 Hgb 7.8 GM/dL (11.7-16.9) L 07/29/17 05:45 Hct 21.7 % (35.4-49) L 07/29/17 05:45 MCV 95.5 fl (80-96) 07/29/17 05:45 MCHC 35.8 g/dl (32.0-35.9) 07/29/17 05:45 RDW 12.9 % (11.9-15.9) 07/29/17 05:45 Plt Count 149 K/MM3 (134-434) 07/29/17 05:45 MPV 7.0 fl (7.5-11.1) L 07/29/17 05:45 CMP Sodium 139 mmol/L (136-145) 07/29/17 05:45 Potassium 3.9 mmol/L (3.5-5.1) 07/29/17 05:45 Chloride 104 mmol/L (98-107) 07/29/17 05:45 Carbon Dioxide 28 mmol/L (21-32) 07/29/17 05:45 Anion Gap 7 (8-16) L 07/29/17 05:45 BUN 25 mg/dL (7-18) H 07/29/17 05:45 Creatinine 0.8 mg/dL (0.7-1.3) D 07/29/17 05:45 Creat Clearance w eGFR > 60 (>60) 07/28/17 09:00 Random Glucose 109 mg/dL (74-106) H 07/29/17 05:45 Calcium 7.9 mg/dL (8.5-10.1) L 07/29/17 05:45 Total Bilirubin 1.0 mg/dl (0.2-1.0) D 07/28/17 09:00 AST 26 U/L (10-42) D 07/28/17 09:00 ALT 31 U/L (10-40) D 07/28/17 09:00 Alkaline Phosphatase 47 U/L (32-92) 07/28/17 09:00 Total Protein 5.7 g/dl (6.4-8.3) L 07/28/17 09:00 Albumin 3.7 g/dl (3.5-5.0) 07/28/17 09:00 CARDIAC ENZYMES Creatine Kinase 182 IU/L (39-308) 07/28/17 09:00 Troponin I 0.02 ng/ml (0.00-0.05) 07/29/17 05:45 Problem List - Problems (1) Anemia associated with acute blood loss Code(s): D62 - ACUTE POSTHEMORRHAGIC ANEMIA (2) Duodenal hemorrhage Code(s): K92.2 - GASTROINTESTINAL HEMORRHAGE, UNSPECIFIED (3) Esophagitis determined by endoscopy Code(s): K20.9 - ESOPHAGITIS, UNSPECIFIED (4) Gastrointestinal hemorrhage with melena Code(s): K92.1 - MELENA (5) NSAID long-term use Code(s): Z79.1 - SNF (CURRENT) USE OF NON-STEROIDAL NON-INFLAM (NSAID) (6) Upper GI bleed Code(s): K92.2 - GASTROINTESTINAL HEMORRHAGE, UNSPECIFIED Assessment/Plan 62yom with PMHx HTN, HLD, CAD, [place] s/p stents on Plavix, GERD, s/p H Pylori treatment admitted with symptomatic anemia in setting of upper GIB. Transferred to ICU after EGD and stabilization of bleeding gastric ulcers for observation. Plan: -Hgb q12 -Transfuse for Hgb<7 -wean off O2 today -Incentive shazia -Cont PPI BID -advance diet per GI, currently clears -DVT proph with SCD Stable for floor transfer [facility] Pulm/CCM CCT: 35m
[2017-07-29] MEDS ORDERED: PT OWN MED DRAWER 7, Y5N ONE (10:03)
[2017-07-29] MEDS: PANTOPRAZOLE SODIUM 40 MG VIAL IVPUSH SCH ×2 (10:14→21:47)
[2017-07-29] MEDS: LISINOPRIL 10 MG TABLET (FP) PO SCH (10:14)
[2017-07-29] MEDS: MUPIROCIN 2% TOPICAL OINTMENT FOR DECOLONIZATION NS SCH ×2 (10:15→21:53)
[2017-07-29] MEDS: NEBIVOLOL 10 MG TABLET (FP) PO SCH (10:28)
--- NOTE | 2017-07-29 13:15 | EKG ---
Test Reason : Blood Pressure : / mmHG Vent. Rate : 062 BPM Atrial Rate : 062 BPM P-R Int : 180 ms QRS Dur : 128 ms QT Int : 412 ms P-R-T Axes : 064 -52 076 degrees QTc Int : 418 ms NORMAL SINUS RHYTHM LEFT AXIS DEVIATION LEFT VENTRICULAR HYPERTROPHY WITH QRS WIDENING AND REPOLARIZATION ABNORMALITY ABNORMAL ECG WHEN COMPARED WITH ECG OF 08-APR-2012 11:06, NONSPECIFIC T WAVE ABNORMALITY NO LONGER EVIDENT IN INFERIOR LEADS CLINICAL CORRELATION IS RECOMMENDED Confirmed by RAULITO GENTILE, VALENCIA ([id number]) on 07/29/2017 1:14:49 PM Referred By: Confirmed By:VALENCIA CABEZAS MD
[2017-07-29 15:13] LABS: MCH 33.9 pg (25.7-33.7); MEAN CELL VOLUME 96.8 fl (80-96); MEAN PLT VOLUME 6.9 fl (7.5-11.1); PLATELET COUNT 150 K/MM3 (134-434); WHITE BLOOD COUNT 9.4 K/mm3 (4.0-10.0)
--- NOTE | 2017-07-29 15:36 | PN ---
Progress Note (short form) - Note Progress Note: Subjective: The patient was seen and examined at the bedside, has no complaints at this time Hgb slightly downtrending but stable at 7.6 Current Medications Generic Name Dose Route Start Last Admin Trade Name Asher PRN Reason Stop Dose Admin Atorvastatin Calcium 80 mg 07/29/17 22:00 Lipitor - PO HS RAYNA Chlorhexidine Gluconate 1 applic 07/28/17 22:00 07/28/17 21:50 Hibiclens For Decolonization - TP 1 applic HS RAYNA Administration Sodium Chloride 1,000 mls @ 75 mls/hr 07/28/17 12:45 07/29/17 16:30 Normal Saline - IV 75 mls/hr ASDIR RAYNA Administration Lisinopril 10 mg 07/29/17 10:00 07/29/17 10:14 Prinivil PO 10 mg DAILY RAYNA Administration Mupirocin 1 applic 07/28/17 22:00 07/29/17 10:15 Bactroban Ointment (For Decolonization) - NS 08/02/17 21:59 1 applic BID RAYNA Administration Nebivolol 10 mg 07/29/17 10:00 07/29/17 10:28 Bystolic - PO 10 mg DAILY RAYNA Administration Pantoprazole Sodium 40 mg 07/28/17 22:00 07/29/17 10:14 Protonix Iv IVPUSH 07/31/17 23:59 40 mg BID RAYNA Administration Objective: Vital Signs Period Temp Pulse Resp BP Sys/Dickerson Pulse Ox Last 24 Hr 98 F-100.0 F 60-85 18-22 91-118/52-70 100-100 Physical Exam: General: NAD, A&Ox3 Lungs: CTA bilaterally Heart: RRR, S1S2 Abd: Soft, non-tender, non-distended. Normoactive bowel sounds Ext: Warm, well-perfused. 2+ DP/PT bilaterally Neuro: CN 2-12 intact CBCD WBC 9.4 K/mm3 (4.0-10.0) 07/29/17 15:00 RBC 2.24 M/mm3 (4.00-5.60) L 07/29/17 15:00 Hgb 7.6 GM/dL (11.7-16.9) L 07/29/17 15:00 Hct 21.6 % (35.4-49) L 07/29/17 15:00 MCV 96.8 fl (80-96) H 07/29/17 15:00 MCHC 35.0 g/dl (32.0-35.9) 07/29/17 15:00 RDW 13.0 % (11.9-15.9) 07/29/17 15:00 Plt Count 150 K/MM3 (134-434) 07/29/17 15:00 MPV 6.9 fl (7.5-11.1) L 07/29/17 15:00 CMP Sodium 139 mmol/L (136-145) 07/29/17 05:45 Potassium 3.9 mmol/L (3.5-5.1) 07/29/17 05:45 Chloride 104 mmol/L (98-107) 07/29/17 05:45 Carbon Dioxide 28 mmol/L (21-32) 07/29/17 05:45 Anion Gap 7 (8-16) L 07/29/17 05:45 BUN 25 mg/dL (7-18) H 07/29/17 05:45 Creatinine 0.8 mg/dL (0.7-1.3) D 07/29/17 05:45 Creat Clearance w eGFR > 60 (>60) 07/28/17 09:00 Random Glucose 109 mg/dL (74-106) H 07/29/17 05:45 Calcium 7.9 mg/dL (8.5-10.1) L 07/29/17 05:45 Total Bilirubin 1.0 mg/dl (0.2-1.0) D 07/28/17 09:00 AST 26 U/L (10-42) D 07/28/17 09:00 ALT 31 U/L (10-40) D 07/28/17 09:00 Alkaline Phosphatase 47 U/L (32-92) 07/28/17 09:00 Total Protein 5.7 g/dl (6.4-8.3) L 07/28/17 09:00 Albumin 3.7 g/dl (3.5-5.0) 07/28/17 09:00 CARDIAC ENZYMES Creatine Kinase 182 IU/L (39-308) 07/28/17 09:00 Troponin I 0.02 ng/ml (0.00-0.05) 07/29/17 05:45 Assessment: This is a 62 year old male with PMHx of HTN, hyperlipidemia, CAD, [place] s/p stents on Plavix, GERD, s/p H.pylori treatment who was admitted with symptomatic anemia in the setting of an upper GI bleed. Plan: 1) GI: Upper GI bleed - EGD with 2, 5mm shallow bulb/1st portion actively oozing ulcers, injected with epi, complete hemostasis achieved - Waiting EGD report - Monitor Hgb q12h - Transfuse if Hgb <7 - Continue Protonix bid - F/u biopsies in the office in 2 weeks - Advance diet per GI - Appreciate GI consult 2) Cardiology: CAD s/p SD with stenting 5 years ago - Hold ASA and Plavix 2/2 GI bleed. Resume when cleared by GI - Trops x3 negative HTN - Continue Lisinopril - Continue bystolic Hyperlipidemia: - Continue Lipitor 3) Hematology: Acute blood loss anemia 2/2 bleeding ulcers - Monitor Hgb, if <7, will transfuse 4) F/E/N: - Clear liquid diet - Monitor electrolytes - Hypomagnesemia: replete 5) Prophylaxis: - Hold all chemical dvt prophylaxis 2/2 GI bleed - SCDs bilaterally 6) Dispo: - Requires continued inpatient care CODE STATUS: FULL CODE Visit type - Emergency Visit Emergency Visit: Yes ED Registration Date: 07/28/17 Care time: The patient presented to the Emergency Department on the above date and was hospitalized for further evaluation of their emergent condition. - New Patient This patient is new to me today: Yes Date on this admission: 07/29/17 - Critical Care Critical Care patient: No
[2017-07-29] MEDS ORDERED: MAGNESIUM OXIDE 400 MG TABLET (FP) PO ONE (16:00)
[2017-07-29] MEDS: SODIUM CHLORIDE 1,000 ML IV SCH (16:30)
--- NOTE | 2017-07-29 17:51 | PN ---
Progress Note, Physician History of Present Illness: No events, no BMs. Comfortable. Hgb between 7 and 8 over the last 24 hrs. - Current Medication List Current Medications: Active Medications Atorvastatin Calcium (Lipitor -) 80 mg PO HS [facility] Chlorhexidine Gluconate (Hibiclens For Decolonization -) 1 applic TP HS [facility] Last Admin: 07/28/17 21:50 Dose: 1 applic Sodium Chloride (Normal Saline -) 1,000 mls @ 75 mls/hr IV ASDIR [facility] Last Admin: 07/29/17 16:30 Dose: 75 mls/hr Lisinopril (Prinivil) 10 mg PO DAILY [facility] Last Admin: 07/29/17 10:14 Dose: 10 mg Mupirocin (Bactroban Ointment (For Decolonization) -) 1 applic NS BID [facility] Stop: 08/02/17 21:59 Last Admin: 07/29/17 10:15 Dose: 1 applic Nebivolol (Bystolic -) 10 mg PO DAILY [facility] Last Admin: 07/29/17 10:28 Dose: 10 mg Pantoprazole Sodium (Protonix Iv) 40 mg IVPUSH BID [facility] Stop: 07/31/17 23:59 Last Admin: 07/29/17 10:14 Dose: 40 mg - Objective Vital Signs: Vital Signs Temperature 100.0 F H 07/29/17 17:15 Pulse Rate 62 07/29/17 17:15 Respiratory Rate 18 07/29/17 17:15 Blood Pressure 110/60 07/29/17 16:00 O2 Sat by Pulse Oximetry (%) 100 07/29/17 09:00 Constitutional: Yes: Well Nourished, No Distress Eyes: Yes: Conjunctiva Clear HENT: Yes: Atraumatic Neck: Yes: Supple Cardiovascular: Yes: Regular Rate and Rhythm Respiratory: Yes: Regular Gastrointestinal: Yes: Normal Bowel Sounds Neurological: Yes: Alert, Oriented Labs: CBC, BMP 07/29/17 15:00 07/29/17 05:45 INR, PTT INR 1.06 (0.82-1.09) 07/28/17 09:00 Laboratory Results - last 24 hr 07/28/17 07/29/17 07/29/17 16:30 00:00 00:00 WBC 13.4 H RBC 2.46 L Hgb 8.1 L Hct 23.6 L MCV 96.0 MCH 33.1 MCHC 34.4 RDW 12.5 Plt Count 159 MPV 7.6 Sodium Potassium Chloride Carbon Dioxide Anion Gap BUN Creatinine Random Glucose Calcium Phosphorus Magnesium Troponin I 0.05 D 0.03 D 07/29/17 07/29/17 07/29/17 05:45 05:45 15:00 WBC 11.0 H 9.4 RBC 2.27 L 2.24 L Hgb 7.8 L 7.6 L Hct 21.7 L 21.6 L MCV 95.5 96.8 H MCH 34.2 H 33.9 H MCHC 35.8 35.0 RDW 12.9 13.0 Plt Count 149 150 MPV 7.0 L 6.9 L Sodium 139 Potassium 3.9 Chloride 104 Carbon Dioxide 28 Anion Gap 7 L BUN 25 H Creatinine 0.8 D Random Glucose 109 H Calcium 7.9 L Phosphorus 3.2 Magnesium 1.3 L Troponin I 0.02 Problem List - Problems (1) Gastrointestinal hemorrhage with melena Code(s): K92.1 - MELENA (2) NSAID long-term use Code(s): Z79.1 - RESIDENTIAL (CURRENT) USE OF NON-STEROIDAL NON-INFLAM (NSAID) (3) Anemia associated with acute blood loss Code(s): D62 - ACUTE POSTHEMORRHAGIC ANEMIA (4) Duodenal hemorrhage Code(s): K92.2 - GASTROINTESTINAL HEMORRHAGE, UNSPECIFIED (5) Esophagitis determined by endoscopy Code(s): K20.9 - ESOPHAGITIS, UNSPECIFIED Assessment/Plan s/p EGD with control of bleeding 2 5 mm shallow, bulb/1st portion actively oozing from visible vessel ulcers found and injected with a total of 12 cc 1:10,000 epi. Complete hemostasis was achieved. Resolution clips, despite multiple attempts, could not be deployed due to ulcers location. No events. Asymptomatic in bed. Hgb around 7, no signs of ongoing bleeding. Clearl liquid diet Continue PPI CBC AM Follow biopsies and Hgb in office in 2 weeks Discussed with the patent and his
[2017-07-29] MEDS: CHLORHEXIDINE GLUCONATE 4% CLEANSER FOR DECOLONIZATION TP SCH (21:47)
[2017-07-29] MEDS: ATORVASTATIN CA 80 MG TABLET (FP) PO SCH (21:47)
[2017-07-30 08:46] LABS: MCH 34.1 pg (25.7-33.7); MCHC 35.4 g/dl (32.0-35.9); MEAN CELL VOLUME 96.2 fl (80-96); MEAN PLT VOLUME 7.1 fl (7.5-11.1); PLATELET COUNT 156 K/MM3 (134-434); RDW 12.7 % (11.9-15.9); WHITE BLOOD COUNT 9.1 K/mm3 (4.0-10.0)
[2017-07-30 09:20] LABS: ALBUMIN 2.8 g/dl (3.4-5.0); ALK PHOS 31 U/L (45-117); ANION GAP 8 (8-16); BILIRUBIN,TOTAL 0.5 mg/dL (0.2-1.0); CALCIUM 7.5 mg/dL (8.5-10.1); CO2 25 mmol/L (21-32); CREATININE 0.8 mg/dL (0.7-1.3); GLUCOSE,RANDOM 101 mg/dL (74-106); MAGNESIUM 1.7 mg/dL (1.8-2.4); SGOT/AST 15 U/L (15-37); SGPT/ALT 25 U/L (12-78)
[2017-07-30] MEDS ORDERED: PT OWN MED DRAWER 7, Y5N ONE (09:49)
[2017-07-30] MEDS: PANTOPRAZOLE 40 MG TABLET (FP) PO SCH ×2 (09:57→21:20)
[2017-07-30] MEDS: LISINOPRIL 10 MG TABLET (FP) PO SCH (09:57)
[2017-07-30] MEDS: NEBIVOLOL 10 MG TABLET (FP) PO SCH (10:25)
--- NOTE | 2017-07-30 11:59 | PN ---
Progress Note (short form) - Note Progress Note: Subjective: The patient was seen and examined at the bedside, has no complaints at this time. He reports having a solid black bowel movement this morning Current Medications Generic Name Dose Route Start Last Admin Trade Name Asher PRN Reason Stop Dose Admin Atorvastatin Calcium 80 mg 07/29/17 22:00 07/29/17 21:47 Lipitor - PO 80 mg HS RAYNA Administration Lisinopril 10 mg 07/29/17 10:00 07/30/17 09:57 Prinivil PO 10 mg DAILY RAYNA Administration Nebivolol 10 mg 07/29/17 10:00 07/30/17 10:25 Bystolic - PO 10 mg DAILY RAYNA Administration Pantoprazole Sodium 40 mg 07/30/17 10:00 07/30/17 09:57 Protonix - PO 40 mg BID RAYNA Administration Objective: Vital Signs Period Temp Pulse Resp BP Sys/Dickerson Pulse Ox Last 24 Hr 98 F-100.0 F 59-73 18-20 91-126/54-64 97-100 Physical Exam: General: NAD, A&Ox3 Lungs: CTA bilaterally Heart: RRR, S1S2 Abd: Soft, non-tender, non-distended. Normoactive bowel sounds Ext: Warm, well-perfused. 2+ DP/PT bilaterally Neuro: CN 2-12 intact CBCD WBC 9.1 K/mm3 (4.0-10.0) 07/30/17 08:35 RBC 2.15 M/mm3 (4.00-5.60) L 07/30/17 08:35 Hgb 7.3 GM/dL (11.7-16.9) L 07/30/17 08:35 Hct 20.7 % (35.4-49) L 07/30/17 08:35 MCV 96.2 fl (80-96) H 07/30/17 08:35 MCHC 35.4 g/dl (32.0-35.9) 07/30/17 08:35 RDW 12.7 % (11.9-15.9) 07/30/17 08:35 Plt Count 156 K/MM3 (134-434) 07/30/17 08:35 MPV 7.1 fl (7.5-11.1) L 07/30/17 08:35 CMP Sodium 140 mmol/L (136-145) 07/30/17 08:35 Potassium 3.8 mmol/L (3.5-5.1) 07/30/17 08:35 Chloride 107 mmol/L (98-107) 07/30/17 08:35 Carbon Dioxide 25 mmol/L (21-32) 07/30/17 08:35 Anion Gap 8 (8-16) 07/30/17 08:35 BUN 16 mg/dL (7-18) D 07/30/17 08:35 Creatinine 0.8 mg/dL (0.7-1.3) 07/30/17 08:35 Creat Clearance w eGFR > 60 (>60) 07/30/17 08:35 Random Glucose 101 mg/dL (74-106) 07/30/17 08:35 Calcium 7.5 mg/dL (8.5-10.1) L 07/30/17 08:35 Total Bilirubin 0.5 mg/dL (0.2-1.0) 07/30/17 08:35 AST 15 U/L (15-37) D 07/30/17 08:35 ALT 25 U/L (12-78) D 07/30/17 08:35 Alkaline Phosphatase 31 U/L (45-117) L D 07/30/17 08:35 Total Protein 5.0 g/dl (6.4-8.2) L D 07/30/17 08:35 Albumin 2.8 g/dl (3.4-5.0) L D 07/30/17 08:35 CARDIAC ENZYMES Creatine Kinase 182 IU/L (39-308) 07/28/17 09:00 Troponin I 0.02 ng/ml (0.00-0.05) 07/29/17 05:45 Assessment: This is a 62 year old male with PMHx of HTN, hyperlipidemia, CAD, [place] s/p stents on Plavix, GERD, s/p H.pylori treatment who was admitted with symptomatic anemia in the setting of an upper GI bleed. Plan: 1) GI: Upper GI bleed - EGD with 2, 5mm shallow bulb/1st portion actively oozing ulcers, injected with epi, complete hemostasis achieved - Waiting EGD report - Monitor Hgb q12h - Transfuse if Hgb <7 - Continue Protonix bid - F/u biopsies in the office in 2 weeks - Advance diet per GI, remains on clear liquid diet - Appreciate GI consult 2) Cardiology: CAD s/p MA with stenting 5 years ago - Hold ASA and Plavix 2/2 GI bleed. Resume when cleared by GI - Trops x3 negative HTN - Continue Lisinopril - Continue bystolic Hyperlipidemia: - Continue Lipitor 3) Hematology: Acute blood loss anemia 2/2 bleeding ulcers - Monitor Hgb, if <7, will transfuse 4) F/E/N: - Clear liquid diet - Monitor electrolytes - Hypomagnesemia: replete 5) Prophylaxis: - Hold all chemical dvt prophylaxis 2/2 GI bleed - SCDs bilaterally 6) Dispo: - Requires continued inpatient care CODE STATUS: FULL CODE Visit type - Emergency Visit Emergency Visit: Yes ED Registration Date: 07/28/17 Care time: The patient presented to the Emergency Department on the above date and was hospitalized for further evaluation of their emergent condition. - New Patient This patient is new to me today: No - Critical Care Critical Care patient: No
[2017-07-30] MEDS ORDERED: MAGNESIUM SULF 50% (8.12 MEQ/2 ML-1 GM VIAL) IVPB ONE (13:00)
--- NOTE | 2017-07-30 15:14 | PN ---
Progress Note, Physician History of Present Illness: No events, Comfortable. Hgb between 7 and 8 over the last 24 hrs. - Current Medication List Current Medications: Active Medications Atorvastatin Calcium (Lipitor -) 80 mg PO HS REPLACED BY [facility] Last Admin: 07/29/17 21:47 Dose: 80 mg Lisinopril (Prinivil) 10 mg PO DAILY REPLACED BY [facility] Last Admin: 07/30/17 09:57 Dose: 10 mg Nebivolol (Bystolic -) 10 mg PO DAILY REPLACED BY [facility] Last Admin: 07/30/17 10:25 Dose: 10 mg Pantoprazole Sodium (Protonix -) 40 mg PO BID REPLACED BY [facility] Last Admin: 07/30/17 09:57 Dose: 40 mg - Objective Vital Signs: Vital Signs Temperature 98.7 F 07/30/17 08:56 Pulse Rate 59 L 07/30/17 08:56 Respiratory Rate 20 07/30/17 08:56 Blood Pressure 107/57 07/30/17 08:56 O2 Sat by Pulse Oximetry (%) 97 07/30/17 09:00 Constitutional: Yes: Well Nourished, No Distress, Calm Eyes: Yes: Conjunctiva Clear HENT: Yes: Atraumatic Neck: Yes: Supple Cardiovascular: Yes: Regular Rate and Rhythm Respiratory: Yes: Regular, CTA Bilaterally Gastrointestinal: Yes: Normal Bowel Sounds, Soft. No: Tenderness Neurological: Yes: Alert, Oriented Labs: CBC, BMP 07/30/17 08:35 07/30/17 08:35 INR, PTT INR 1.06 (0.82-1.09) 07/28/17 09:00 Laboratory Results - last 24 hr 07/29/17 07/30/17 07/30/17 15:00 08:35 08:35 WBC 9.4 9.1 RBC 2.24 L 2.15 L Hgb 7.6 L 7.3 L Hct 21.6 L 20.7 L MCV 96.8 H 96.2 H MCH 33.9 H 34.1 H MCHC 35.0 35.4 RDW 13.0 12.7 Plt Count 150 156 MPV 6.9 L 7.1 L Sodium 140 Potassium 3.8 Chloride 107 Carbon Dioxide 25 Anion Gap 8 BUN 16 D Creatinine 0.8 Creat Clearance w eGFR > 60 Random Glucose 101 Calcium 7.5 L Magnesium 1.7 L D Total Bilirubin 0.5 AST 15 D ALT 25 D Alkaline Phosphatase 31 L D Total Protein 5.0 L D Albumin 2.8 L D Problem List - Problems (1) Gastrointestinal hemorrhage with melena Code(s): K92.1 - MELENA (2) NSAID long-term use Code(s): Z79.1 - RESIDENTIAL (CURRENT) USE OF NON-STEROIDAL NON-INFLAM (NSAID) (3) Anemia associated with acute blood loss Code(s): D62 - ACUTE POSTHEMORRHAGIC ANEMIA (4) Duodenal hemorrhage Code(s): K92.2 - GASTROINTESTINAL HEMORRHAGE, UNSPECIFIED (5) Esophagitis determined by endoscopy Code(s): K20.9 - ESOPHAGITIS, UNSPECIFIED Assessment/Plan s/p EGD with control of bleeding 2 5 mm shallow, bulb/1st portion actively oozing from visible vessel ulcers found and injected with a total of 12 cc 1:10,000 epi. Complete hemostasis was achieved. Resolution clips, despite multiple attempts, could not be deployed due to ulcers location. No events. Asymptomatic in bed. Hgb around 7, no signs of ongoing bleeding. PPI po bid and advancing diet d/c planning if hgb remain stable over the next 24 hrs Follow biopsies and Hgb in office in 2 weeks Discussed with the patent and his
[2017-07-30 15:19] LABS: MCH 33.5 pg (25.7-33.7); MCHC 34.5 g/dl (32.0-35.9); MEAN CELL VOLUME 97.2 fl (80-96); MEAN PLT VOLUME 6.9 fl (7.5-11.1); PLATELET COUNT 178 K/MM3 (134-434); RDW 12.9 % (11.9-15.9); WHITE BLOOD COUNT 8.5 K/mm3 (4.0-10.0)
[2017-07-30] MEDS: ATORVASTATIN CA 80 MG TABLET (FP) PO SCH (21:20)
[2017-07-31 08:05] LABS: MCH 33.9 pg (25.7-33.7); MCHC 35.4 g/dl (32.0-35.9); MEAN PLT VOLUME 6.9 fl (7.5-11.1); PLATELET COUNT 162 K/MM3 (134-434); RDW 12.9 % (11.9-15.9); WHITE BLOOD COUNT 6.9 K/mm3 (4.0-10.0)
[2017-07-31 08:33] LABS: ALBUMIN 2.8 g/dl (3.4-5.0); ANION GAP 6 (8-16); CALCIUM 7.7 mg/dL (8.5-10.1); CO2 26 mmol/L (21-32); CREATININE 0.8 mg/dL (0.7-1.3); GLUCOSE,RANDOM 97 mg/dL (74-106); SGOT/AST 19 U/L (15-37); SGPT/ALT 28 U/L (12-78)
[2017-07-31 08:34] LABS: ALK PHOS 35 U/L (45-117); BILIRUBIN,TOTAL 0.7 mg/dL (0.2-1.0)
[2017-07-31] MEDS ORDERED: PT OWN MED DRAWER 7, Y5N ONE (09:58)
[2017-07-31] MEDS: PANTOPRAZOLE 40 MG TABLET (FP) PO SCH ×2 (10:04→21:18)
[2017-07-31] MEDS: LISINOPRIL 10 MG TABLET (FP) PO SCH (10:04)
--- NOTE | 2017-07-31 11:15 | CON.CARD ---
Consult Consult Specialty:: Cardiology Referred by:: Hospitalist Medicine Reason for Consultation:: Antiplatelet therapy recs - History of Present Illness Chief Complaint: Dizziness, fatigue History of Present Illness: 62 yo male with h/o CAD s/p [place], s/p MAX 2011, angina pectoris, HTN, chol presented to ED with c/o fatigue, weakness, melena and positional lightheadedness on standing up. No chest pain, nausea, vomiting, palpations, diaphoresis, or numbness. Deneis maria teresa hematocheziam hematemesis, diarrhea, dysphasia, odynophagia. Reports history of H. pylori infection about 20 y. ago. Takes daily NSAIDs for pains and aches, and tums at night for "acid reflux". No significant weight loss. - History Source History Provided By: Patient Limitations to Obtaining History: No Limitations - Past Medical History Cardio/Vascular: Yes: CAD, HTN, Hyperlipdemia, [place] Gastrointestinal: Yes: GERD, Peptic Ulcer Disease Hepatobiliary: No: Cirrhosis, Cholelithiasis, Hepatitis B, Hepatitis C - Past Surgical History Past Surgical History: Yes: Stent Additional Surgical History: EGD 20 y ago - Alcohol/Substance Use Hx Alcohol Use: Yes (daily 5 beers and wine and beer on weekends) - Smoking History Smoking history: Former smoker Have you smoked in the past 12 months: No Aproximately how many cigarettes per day: 20 If you are a former smoker, when did you quit?: at the age of 18 - Social History Usual Living Arrangement: With Spouse History of Recent Travel: No Home Medications - Allergies Allergies/Adverse Reactions: Allergies Allergy/AdvReac Type Severity Reaction Status Date / Time iodine [Iodine] Allergy Rash Verified 07/28/17 08:23 - Home Medications Home Medications: Ambulatory Orders Atorvastatin Ca [Lipitor (Restricted To Cardiology)] 80 mg PO HS 01/29/12 Lisinopril [Prinivil] 10 mg PO DAILY 03/09/12 Aspirin [ASA] 125 mg PO DAILY 04/08/12 Nebivolol [Bystolic] 10 mg PO HS 04/08/12 Antiox #11/Om3/Dha/Epa/Lut/Joe [Eye Health Adult 50+ Softgel] 1 each PO Brain Boost 07/28/17 Clopidogrel Bisulfate [Plavix -] 75 mg PO DAILY 07/28/17 Herbal Drugs [Colon Herbal Cleanser] 1 each PO 07/28/17 Liver Cleans 07/28/17 Family Disease History - Family Disease History Family Disease History: Other: Father (Gastric ulcers) Review of Systems - Review of Systems Constitutional: reports: Lethargy, Weakness Cardiovascular: reports: Shortness of Breath Neurological: reports: Dizziness Vital Signs: Vital Signs Temperature 98.8 F 07/31/17 08:00 Pulse Rate 60 07/31/17 08:00 Respiratory Rate 18 07/31/17 08:00 Blood Pressure 126/65 07/31/17 08:00 O2 Sat by Pulse Oximetry (%) 96 07/30/17 20:54 Constitutional: Yes: No Distress, Calm Neck: Yes: Supple Respiratory: Yes: Regular, CTA Bilaterally Gastrointestinal: Yes: Soft, Hypoactive Bowel Sounds Cardiovascular: Yes: Regular Rate and Rhythm JVD: No Carotid Bruit: No Heart Sounds: Yes: S1, S2 Edema: No - Other Data Labs, Other Data: CBC, BMP 07/31/17 07:35 07/31/17 07:35 INR, PTT INR 1.06 (0.82-1.09) 07/28/17 09:00 Imaging - Results Chest X-ray: Report Reviewed (NAD) EKG: Report Reviewed (NSR @ 62 LAD, LVH with repol abnl) Problem List - Problems (1) Anemia associated with acute blood loss Code(s): D62 - ACUTE POSTHEMORRHAGIC ANEMIA (2) Gastrointestinal hemorrhage with melena Code(s): K92.1 - MELENA (3) NSAID long-term use Code(s): Z79.1 - REMELT SUGAR BOILER (CURRENT) USE OF NON-STEROIDAL NON-INFLAM (NSAID) (4) Upper GI bleed Code(s): K92.2 - GASTROINTESTINAL HEMORRHAGE, UNSPECIFIED (5) Coronary artery disease Code(s): I25.10 - ATHSCL HEART DISEASE OF [place] CORONARY ARTERY W/O ANG PCTRS Qualifiers: Coronary Disease-Associated Artery/Lesion type: [place] artery [place] vs. transplanted heart: [place] heart Associated angina: without angina Qualified Code(s): I25.10 - Atherosclerotic heart disease of [place] coronary artery without angina pectoris; I25.10 - Atherosclerotic heart disease of [place] coronary artery without angina pectoris; I25.10 - Atherosclerotic heart disease of [place] coronary artery without angina pectoris (6) Status post coronary artery stent placement Code(s): Z95.5 - PRESENCE OF CORONARY ANGIOPLASTY IMPLANT AND GRAFT (7) Hypertension Code(s): I10 - ESSENTIAL (PRIMARY) HYPERTENSION Qualifiers: Hypertension type: essential hypertension Qualified Code(s): I10 - Essential (primary) hypertension; I10 - Essential (primary) hypertension; I10 - Essential (primary) hypertension (8) Hyperlipidemia Code(s): E78.5 - HYPERLIPIDEMIA, UNSPECIFIED Qualifiers: Hyperlipidemia type: pure hypercholesterolemia Qualified Code(s): E78.00 - Pure hypercholesterolemia, unspecified; E78.00 - Pure hypercholesterolemia, unspecified; E78.00 - Pure hypercholesterolemia, unspecified; E78.0 - Pure hypercholesterolemia Assessment/Plan 1. Upper GI bleed referable to bleeding NSAID-induced PUD post epi injection 2. CAD s/p [place], MAX 2011 3. Hypertension 4. Hyperlipidemia 5. Acute anemia referable to GI loss P:1. Transfuse to maintain Hg>8.0, continue Protonix, f/u biopsy results, advance diet per GI, avoidance of NSAIDs 2. Resume Plavix 75 qd once hemostasis assured by GI, continue Bystolic 10 qhs, lisinopril 10 qd, Lipitor 80 qhs 3. Thank you for consultative opportunity
--- NOTE | 2017-07-31 11:30 | PN ---
Physical Exam: SUBJECTIVE: Patient seen and examined at the bedside. OBJECTIVE: Hmg/hct remains low/stable. He is asymptomatic, denies dizziness with ambulation. Pt has cardiac history of TX with stents and presented with hmg of 10 As per cardiology recommendations, will transfuse 1 unit of prbc. Check CBC after blood transfusion and in the a.m., if above 8hmg, will d/c in a.m. with close GI and cardiology follow-up. Started him on Ferrous sulfate daily Vital Signs Period Temp Pulse Resp BP Sys/Dickerson Pulse Ox Last 24 Hr 98.0 F-99.0 F 55-68 18-21 100-126/56-65 96 GENERAL: The patient is awake, alert, and fully oriented, in no acute distress. HEAD: Normal with no signs of trauma. EYES: PERRL, extraocular movements intact, sclera anicteric, conjunctiva clear. No ptosis. ENT: Ears normal, nares patent, oropharynx clear without exudates, moist mucous membranes. NECK: Trachea midline, full range of motion, supple. LUNGS: Breath sounds equal, clear to auscultation bilaterally, no wheezes, no crackles, no accessory muscle use. HEART: Regular rate and rhythm ABDOMEN: Soft, nontender, nondistended, normoactive bowel sounds, no guarding, no rebound, no hepatosplenomegaly, no masses. EXTREMITIES: 2+ pulses, warm, well-perfused, no edema. NEUROLOGICAL: Normal speech, gait not observed. PSYCH: Normal mood, normal affect. SKIN: Warm, dry, normal turgor, no rashes or lesions noted Laboratory Results - last 24 hr 07/30/17 07/31/17 07/31/17 15:00 07:35 07:35 WBC 8.5 6.9 RBC 2.21 L 2.18 L Hgb 7.4 L 7.4 L Hct 21.5 L 21.0 L MCV 97.2 H 96.0 MCH 33.5 33.9 H MCHC 34.5 35.4 RDW 12.9 12.9 Plt Count 178 162 MPV 6.9 L 6.9 L Sodium 141 Potassium 4.0 Chloride 109 H Carbon Dioxide 26 Anion Gap 6 L BUN 10 D Creatinine 0.8 Creat Clearance w eGFR > 60 Random Glucose 97 Calcium 7.7 L Total Bilirubin 0.7 D AST 19 D ALT 28 Alkaline Phosphatase 35 L Total Protein 5.0 L Albumin 2.8 L Active Medications Generic Name Dose Route Start Last Admin Trade Name Freq PRN Reason Stop Dose Admin Atorvastatin Calcium 80 mg 07/29/17 22:00 07/30/17 21:20 Lipitor - PO 80 mg HS RAYNA Administration Lisinopril 10 mg 07/29/17 10:00 07/31/17 10:04 Prinivil PO 10 mg DAILY RAYNA Administration Nebivolol 10 mg 07/29/17 10:00 07/30/17 10:25 Bystolic - PO 10 mg DAILY RAYNA Administration Pantoprazole Sodium 40 mg 07/30/17 10:00 07/31/17 10:04 Protonix - PO 40 mg BID RAYNA Administration ASSESSMENT/PLAN: Patient is a 62 year old male with a significant past medical history of hypertension, HLD, CAD/TX s/p stent in 2011 on Plavix, H pylori and GERD. He presents to the ED with complaints of worsening lightheadedness, weakness, CARTER, palpitations, diaphoresis, mild RUQ pain. He was admitted on 07/28/2017 with symptomatic anemia and was found to have an Upper GI bleed. GI: Upper GI bleed, resolved Repaired with EGD that found actively bleeding uclers, s/p EPI injections On admission hmg 10, trended down to 7.4 He has a cardiac history with stents, goal is to keep hmg @ 8 or above, will transfuse 1 unit of prbc and if stable in a.m. will d/c home with close GI and cardiology follow up Neon Sign Installer consulted, he is a patient of Dr. Powers CBC after blood transfusion and again in the a.m Continue Protonix BID, will need outpatient GI follow up Advanced diet to full liquids today, regular in a.m. Patient to follow up with biopsies in [address] Farr Hematology: Symptomatic anemia/acute blood loss anemia s/2 to upper gi bleed/ucers 1 unit of prbc today to maintain hmg above 8 (cardiac history) CBC post transfusion and a.m. Cardiology: CAD s/p [place] with stenting Continue to hold ASA and Plavix, to restart once cleared by GI On Bystolic and Lisinopril F.E.N. Fluids: tolerating PO Electrolytes: monitor in a.m., all within normal limits today Nutrition: advanced diet to full liquids Prophylaxis: GI: Protonix BID DVT: SCDs when in bed. Disposition: Requires inpatient hospitalization. Discharge tomorrow once hmg/ hct more stable. full code. Visit type - Emergency Visit Emergency Visit: Yes ED Registration Date: 07/28/17 Care time: The patient presented to the Emergency Department on the above date and was hospitalized for further evaluation of their emergent condition. - New Patient This patient is new to me today: Yes Date on this admission: 07/31/17 - Critical Care Critical Care patient: No - Discharge Referral Referred to [facility] No
--- NOTE | 2017-07-31 12:00 | PN ---
Progress Note, Physician History of Present Illness: No events, Comfortable. Hgb between 7 and 8 over the last 48 hrs. - Current Medication List Current Medications: Active Medications Atorvastatin Calcium (Lipitor -) 80 mg PO HS [facility] Last Admin: 07/30/17 21:20 Dose: 80 mg Lisinopril (Prinivil) 10 mg PO DAILY [facility] Last Admin: 07/31/17 10:04 Dose: 10 mg Nebivolol (Bystolic -) 10 mg PO DAILY [facility] Last Admin: 07/30/17 10:25 Dose: 10 mg Pantoprazole Sodium (Protonix -) 40 mg PO BID [facility] Last Admin: 07/31/17 10:04 Dose: 40 mg - Objective Vital Signs: Vital Signs Temperature 98.8 F 07/31/17 08:00 Pulse Rate 60 07/31/17 08:00 Respiratory Rate 18 07/31/17 08:00 Blood Pressure 126/65 07/31/17 08:00 O2 Sat by Pulse Oximetry (%) 96 07/30/17 20:54 Constitutional: Yes: No Distress, Calm Eyes: Yes: Conjunctiva Clear HENT: Yes: Atraumatic Neck: Yes: Supple Cardiovascular: Yes: Regular Rate and Rhythm Respiratory: Yes: Regular Gastrointestinal: Yes: Normal Bowel Sounds, Soft. No: Tenderness Neurological: Yes: Alert, Oriented Labs: CBC, BMP 07/31/17 07:35 07/31/17 07:35 INR, PTT INR 1.06 (0.82-1.09) 07/28/17 09:00 CBCD WBC 6.9 K/mm3 (4.0-10.0) 07/31/17 07:35 RBC 2.18 M/mm3 (4.00-5.60) L 07/31/17 07:35 Hgb 7.4 GM/dL (11.7-16.9) L 07/31/17 07:35 Hct 21.0 % (35.4-49) L 07/31/17 07:35 MCV 96.0 fl (80-96) 07/31/17 07:35 MCHC 35.4 g/dl (32.0-35.9) 07/31/17 07:35 RDW 12.9 % (11.9-15.9) 07/31/17 07:35 Plt Count 162 K/MM3 (134-434) 07/31/17 07:35 MPV 6.9 fl (7.5-11.1) L 07/31/17 07:35 CMP Sodium 141 mmol/L (136-145) 07/31/17 07:35 Potassium 4.0 mmol/L (3.5-5.1) 07/31/17 07:35 Chloride 109 mmol/L (98-107) H 07/31/17 07:35 Carbon Dioxide 26 mmol/L (21-32) 07/31/17 07:35 Anion Gap 6 (8-16) L 07/31/17 07:35 BUN 10 mg/dL (7-18) D 07/31/17 07:35 Creatinine 0.8 mg/dL (0.7-1.3) 07/31/17 07:35 Creat Clearance w eGFR > 60 (>60) 07/31/17 07:35 Calcium 7.7 mg/dL (8.5-10.1) L 07/31/17 07:35 Total Bilirubin 0.7 mg/dL (0.2-1.0) D 07/31/17 07:35 AST 19 U/L (15-37) D 07/31/17 07:35 ALT 28 U/L (12-78) 07/31/17 07:35 Alkaline Phosphatase 35 U/L (45-117) L 07/31/17 07:35 Total Protein 5.0 g/dl (6.4-8.2) L 07/31/17 07:35 Albumin 2.8 g/dl (3.4-5.0) L 07/31/17 07:35 - ....Imaging Other: Pending (pathology) Problem List - Problems (1) Gastrointestinal hemorrhage with melena Code(s): K92.1 - MELENA (2) NSAID long-term use Code(s): Z79.1 - FACTORY SUPERVISOR (CURRENT) USE OF NON-STEROIDAL NON-INFLAM (NSAID) (3) Anemia associated with acute blood loss Code(s): D62 - ACUTE POSTHEMORRHAGIC ANEMIA (4) Duodenal hemorrhage Code(s): K92.2 - GASTROINTESTINAL HEMORRHAGE, UNSPECIFIED (5) Esophagitis determined by endoscopy Code(s): K20.9 - ESOPHAGITIS, UNSPECIFIED Assessment/Plan s/p EGD with control of bleeding 2 5 mm shallow, bulb/1st portion actively oozing from visible vessel ulcers found and injected with a total of 12 cc 1:10,000 epi. Complete hemostasis was achieved. Resolution clips, despite multiple attempts, could not be deployed due to ulcers location. No events. Asymptomatic in bed. Hgb around 7, no signs of ongoing bleeding. d/c on PPI and Iron Follow biopsies and Hgb in office in 2 weeks Discussed with the patent
[2017-07-31] MEDS: NEBIVOLOL 10 MG TABLET (FP) PO SCH (12:16)
[2017-07-31 20:59] LABS: BASOPHIL 0.7 % (0-2.0); MCH 33.1 pg (25.7-33.7); MCHC 34.5 g/dl (32.0-35.9); MEAN CELL VOLUME 95.8 fl (80-96); MEAN PLT VOLUME 7.1 fl (7.5-11.1); NEUTROPHILS 56.3 % (42.8-82.8); PLATELET COUNT 194 K/MM3 (134-434); RDW 14.1 % (11.9-15.9); WHITE BLOOD COUNT 6.3 K/mm3 (4.0-10.0)
[2017-07-31] MEDS: ATORVASTATIN CA 80 MG TABLET (FP) PO SCH (21:17)
[2017-08-01 06:39] LABS: MCH 33.3 pg (25.7-33.7); MCHC 34.8 g/dl (32.0-35.9); MEAN CELL VOLUME 95.5 fl (80-96); MEAN PLT VOLUME 6.5 fl (7.5-11.1); PLATELET COUNT 181 K/MM3 (134-434); RDW 14.7 % (11.9-15.9); WHITE BLOOD COUNT 6.6 K/mm3 (4.0-10.0)
--- NOTE | 2017-08-01 09:03 | DS ---
Physical Exam: SUBJECTIVE: Patient seen and examined OBJECTIVE: Vital Signs Period Temp Pulse Resp BP Sys/Dickerson Pulse Ox Last 24 Hr 98.2 F-99.1 F 54-61 18-20 99-110/57-62 96 PHYSICAL EXAM GENERAL: The patient is awake, alert, and fully oriented, in no acute distress. HEAD: Normal with no signs of trauma. EYES: PERRL, extraocular movements intact, sclera anicteric, conjunctiva clear. ENT: Ears normal, nares patent, oropharynx clear without exudates, moist mucous membranes. NECK: Trachea midline, full range of motion, supple. LUNGS: Breath sounds equal, clear to auscultation bilaterally, no wheezes, no crackles, no accessory muscle use. HEART: Regular rate and rhythm, S1, S2 without murmur, rub or gallop. ABDOMEN: Soft, nontender, nondistended, normoactive bowel sounds, no guarding, no rebound, no hepatosplenomegaly, no masses. EXTREMITIES: 2+ pulses, warm, well-perfused, no edema. NEUROLOGICAL: Cranial nerves II through XII grossly intact. Normal speech, gait not observed. PSYCH: Normal mood, normal affect. SKIN: Warm, dry, normal turgor, no rashes or lesions noted. LABS Laboratory Results - last 24 hr 07/31/17 07/31/17 08/01/17 12:15 19:45 05:40 WBC 6.3 6.6 RBC 2.39 L 2.46 L Hgb 7.9 L 8.2 L Hct 22.9 L 23.5 L MCV 95.8 95.5 MCH 33.1 33.3 MCHC 34.5 34.8 RDW 14.1 14.7 Plt Count 194 181 MPV 7.1 L 6.5 L Neutrophils % 56.3 Lymphocytes % 29.4 Monocytes % 9.6 Eosinophils % 4.0 Basophils % 0.7 Blood Type O POSITIVE Antibody Screen Negative Crossmatch See Detail HOSPITAL COURSE: Date of Admission:07/28/17 Date of Discharge: 08/01/17 Discharge Summary Reason For Visit: UPPER GI BLEED Current Active Problems Anemia associated with acute blood loss (Acute) Coronary artery disease (Acute) Duodenal hemorrhage (Acute) Esophagitis determined by endoscopy (Acute) Gastrointestinal hemorrhage with melena (Acute) Hyperlipidemia (Acute) Hypertension (Acute) NSAID long-term use (Acute) Status post coronary artery stent placement (Acute) Upper GI bleed (Acute) Condition: Stable - Instructions Diet, Activity, Other Instructions: Mr. Davis: You were admitted to [facility] on 07/28/2017 with an upper GI bleed. You underwent an EGD with repair of this bleed. You received a unit of blood on with good effect. Please have your blood work repeated to ensure that you remain stable. Please see your PCP within 1 week for repeat labs. Please see Dr. Greenwood (Gastroenterology) in 2 weeks for followup and review of the biopsies. You should also see Dr. Powers (tv host) within 1 week after discharge from the hospital. Please DO NOT resume your Plavix or Aspirin unless you are cleared to do so by Dr. Greenwood. Signs/Symptoms to look out for: - worsening weakness - shortness of breath - dizziness with ambulation - feeling lightheaded - vomiting up coffee ground emesis If you experience any of the above, please come back to the ER. NEW MEDICATIONS: PROTONIX 40MG, take this medication twice per day. Take in the morning and the evening. Take on an empty stomach, 1 hour before meals. Ferrous Sulfate (iron pill) 325mg daily, take this separate from the Protonix, 2 hours after Protonix. Please take the IRON WITH FOOD. Please do not take any NSAIDS (Aleve, Aspirin, Ibuprophen). Your hemaglobin and hematocrit today is 8.2/23.5. Please call me with any questions you may have Margaux Claroscherry Melvin SENIOR OFFICE ASSISTANT [phone] [facility] Referrals: Angie Drake MD [Primary Care Provider] - Cy Farr MD [Staff Physician] - 2 Weeks Amol Powers MD [Staff Physician] - Disposition: HOME - Home Medications Comprehensive Discharge Medication List: Ambulatory Orders Atorvastatin Ca [Lipitor] 80 mg PO HS 01/29/12 Lisinopril [Prinivil] 10 mg PO DAILY 03/09/12 Nebivolol [Bystolic -] 10 mg PO HS 04/08/12 Antiox #11/Om3/Dha/Epa/Lut/Joe [Eye Health Adult 50+ Softgel] 1 each PO Atorvastatin Ca [Lipitor] 80 mg PO HS tablet 08/01/17 Ferrous Sulfate [Feosol] 325 mg PO DAILY #30 tab 08/01/17 Lisinopril [Prinivil] 10 mg PO DAILY tablet 08/01/17 Nebivolol [Bystolic -] 10 mg PO DAILY tab 08/01/17 Pantoprazole Sodium [Protonix -] 40 mg PO BID #60 tab 08/01/17 - Discharge Referral Referred to [facility] No
[2017-08-01] MEDS ORDERED: PT OWN MED DRAWER 7, Y5N ONE (09:12)
[2017-08-01] MEDS: PANTOPRAZOLE 40 MG TABLET (FP) PO SCH (09:16)
[2017-08-01] MEDS ORDERED: FERROUS SO4 325 MG TABLET (FP) PO SCH (10:00)
--- NOTE | 2017-08-01 10:17 | PN ---
Progress Note, Physician - Current Medication List Current Medications: Active Medications Atorvastatin Calcium (Lipitor -) [address] [facility] Last Admin: 07/31/17 21:17 Dose: 80 mg Ferrous Sulfate (Feosol -) 325 mg PO DAILY [facility] Last Admin: 08/01/17 09:16 Dose: 325 mg Lisinopril (Prinivil) 10 mg PO DAILY [facility] Last Admin: 07/31/17 10:04 Dose: 10 mg Nebivolol (Bystolic -) 10 mg PO DAILY [facility] Last Admin: 07/31/17 12:16 Dose: 10 mg Pantoprazole Sodium (Protonix -) 40 mg PO BID [facility] Last Admin: 08/01/17 09:16 Dose: 40 mg - Objective Vital Signs: Vital Signs Temperature 98.2 F 08/01/17 05:30 Pulse Rate 60 08/01/17 05:30 Respiratory Rate 20 08/01/17 05:30 Blood Pressure 110/60 08/01/17 05:30 O2 Sat by Pulse Oximetry (%) 96 07/31/17 20:36 Labs: CBC, BMP 08/01/17 05:40 07/31/17 07:35 INR, PTT INR 1.06 (0.82-1.09) 07/28/17 09:00
[2017-08-01] MEDS: LISINOPRIL 10 MG TABLET (FP) PO SCH (11:25)
[2017-08-01] MEDS: NEBIVOLOL 10 MG TABLET (FP) PO SCH (11:25)
--- NOTE | 2017-08-01 11:28 | PATH ---
Surgical Pathology Report Patient Name: QUEENIE RUBIO [facility]. Rec. #: [id number] /Age/Gender: 1955 (Age: 62) / M Account: [id number] Location: [address] [place] [address] Taken: 07/28/2017 Received: 07/28/2017 Reported: 08/01/2017 Physicians: Cy Farr M.D. Specimen(s) Received A: BX ANTRUM AND BODY B: BX DISTAL ESOPHAGUS Clinical History GI bleed Rule out H. Pylori Final Diagnosis A. STOMACH, ANTRUM AND BODY, BIOPSY: GASTRIC ANTRAL AND FUNDIC MUCOSA WITH NO PATHOLOGIC CHANGES. IMMUNOSTAIN FOR H. PYLORI IS NEGATIVE. B. DISTAL ESOPHAGUS, BIOPSY: SQUAMOUS AND GASTRIC MUCOSA WITH CHRONIC INFLAMMATION. NO INTESTINAL METAPLASIA IDENTIFIED (NO CASEY'S IDENTIFIED). Electronically Signed Kimani Caceres M.D. Gross Description A. Received in formalin, labeled "biopsy antrum and body" are 3 mcmahan, irregular portions of soft tissue ranging from 0.3-0.5 cm. in greatest dimension. The specimens are submitted in toto in one cassette. B. Received in formalin, labeled "distal esophagus" are 2 mcmahan, irregular portions of soft tissue averaging 0.1 cm. in greatest dimension. The specimens are submitted in toto in one cassette. 07/31/2017 [facility]07/31/2017
[2017-08-01 11:33] VITALS: BP 145/70; PULSE 78; TEMP 98.3
== END 2017-08-01 11:55 | disposition home or self-care (01) | DRG 378 ==
LOC: SUPCPDRO 08:19 → FER 08:19 → FM/S 12:53 → JICU 16:21 → J6S 07-29 22:23
PROVIDERS: ADMIT Internal Medicine; ATTEND Nurse Practitioner Family
PROC: 0DD68ZX Extraction of Stomach, Via Natural or Artificial Opening Endoscopic, Diagnostic (ICD-10-PCS; 2017-07-28)
PROC: 0W3P8ZZ Control Bleeding in Gastrointestinal Tract, Via Natural or Artificial Opening Endoscopic (ICD-10-PCS; 2017-07-28)
PROC: 3E0G8GC Introduction of Other Therapeutic Substance into Upper GI, Via Natural or Artificial Opening Endoscopic (ICD-10-PCS; 2017-07-28)
PROC: 0DD58ZX Extraction of Esophagus, Via Natural or Artificial Opening Endoscopic, Diagnostic (ICD-10-PCS; principal; 2017-07-28 12:45)
PROC: 30233N1 Transfusion of Nonautologous Red Blood Cells into Peripheral Vein, Percutaneous Approach (ICD-10-PCS; 2017-07-31)
DX: K26.4 Chronic or unspecified duodenal ulcer with hemorrhage (principal); D62 Acute posthemorrhagic anemia; I25.110 Atherosclerotic heart disease of native coronary artery with unstable angina pectoris; I10 Essential (primary) hypertension; E78.5 Hyperlipidemia, unspecified; I25.2 Old myocardial infarction; K21.9 Gastro-esophageal reflux disease without esophagitis; E83.42 Hypomagnesemia; Z87.891 Personal history of nicotine dependence; Z95.5 Presence of coronary angioplasty implant and graft; K20.9 Esophagitis, unspecified; Z79.1 Long term (current) use of non-steroidal anti-inflammatories (NSAID); Z87.11 Personal history of peptic ulcer disease
CPT/HCPCS: 36415; 36430; 71020-TC; 80048; 80053; 81003; 82140; 82272; 82550; 82553; 83605; 83690; 83735; 83880; 84100; 84484; 85025; 85027; 85610; 85730; 86850; 86900; 86901; 86922; 88305-TC; 93005; 94760; 99285-25; P9038; P9058

== ENCOUNTER 2021-10-07 16:58 | Emergency (ER) | payer OTHER ==
[2021-10-07 17:19] VITALS: TEMP 98.3; BMI 26.9
[2021-10-07 19:20] LABS: HEMATOCRIT 38.1 % (35.4-49); HEMOGLOBIN 12.8 GM/dL (11.7-16.9); MCH 33.1 pg (25.7-33.7); MCHC 33.7 g/dl (32.0-35.9); MEAN CELL VOLUME 98.4 fl (80-96); MEAN PLT VOLUME 6.8 fl (7.5-11.1); PLATELET COUNT 278 10^3/uL (134-434); RBC 3.87 M/mm3 (4.00-5.60); RDW 13.2 % (11.9-15.9); WHITE BLOOD COUNT 9.5 K/mm3 (4.0-10.0)
[2021-10-07 19:27] LABS: INR 0.97 (0.83-1.09); PROTHROMBIN TIME (PATIENT) 11.4 SEC (9.7-13.0)
[2021-10-07 19:29] LABS: ACTIVATED PTT 25.8 SECONDS (25.2-36.5)
[2021-10-07 19:38] LABS: CHLORIDE 106 mmol/L (98-107); SODIUM 135 mmol/L (136-145)
[2021-10-07 19:42] LABS: CALCIUM 9.3 mg/dL (8.5-10.1)
[2021-10-07 19:43] LABS: ALBUMIN 4.1 g/dl (3.4-5.0); BLOOD UREA NITROGEN 18.7 mg/dL (7-18); CO2 23 mmol/L (21-32); GLUCOSE,RANDOM 93 mg/dL (74-106)
[2021-10-07 19:46] LABS: SGOT/AST 87 U/L (15-37)
[2021-10-07 19:47] LABS: BILIRUBIN,TOTAL 0.6 mg/dL (0.2-1)
[2021-10-07 19:48] LABS: ALK PHOS 73 U/L (45-117); TOT PROT 7.6 g/dl (6.4-8.2)
[2021-10-07 20:28] LABS: ANION GAP 6 MMOL/L (8-16); SGPT/ALT 49 U/L (13-61)
[2021-10-07 22:16] VITALS: BP 152/87; PULSE 74
== END 2021-10-07 22:20 | disposition home or self-care (01) ==
LOC: JER 16:58
DX: R06.02 Shortness of breath (principal)
CPT/HCPCS: 36415; 71046-TC-FY; 80053; 82550; 82553; 84132; 84484; 85027; 85610; 85730; 93005; 93010; 99284-25; C9803; U0003; U0005

== ENCOUNTER 2022-04-28 12:07 | Inpatient (IN) | payer OTHER ==
[2022-04-28 13:43] LABS: HEMATOCRIT 39.1 % (35.4-49); HEMOGLOBIN 13.8 G/dL (11.7-16.9); MCH 33.8 pg (25.7-33.7); MCHC 35.2 g/dl (32.0-35.9); MEAN PLT VOLUME 7.4 fl (7.5-11.1); PLATELET COUNT 144.3 10^3/uL (134-434); RBC 4.07 10^6/uL (4.00-5.60); RDW 13.9 % (11.9-15.9)
[2022-04-28 13:44] LABS: INR 1.84 (0.83-1.09); PROTHROMBIN TIME (PATIENT) 21.3 SEC (9.7-13.0)
[2022-04-28 13:54] LABS: ALBUMIN 3.7 g/dl (3.4-5.0); BILIRUBIN,TOTAL 0.8 mg/dl (0.2-1); CALCIUM 9.7 mg/dl (8.5-10); TOT PROT 7.3 g/dl (6.4-8.2)
[2022-04-28] MEDS ORDERED: LORazepam 1 MG TABLET PO ONE (14:54)
[2022-04-28] MEDS ORDERED: LORazepam 0.5 MG TABLET ONE (15:02)
[2022-04-28 15:20] LABS: EPITHELIAL CELLS RARE /hpf
[2022-04-28] MEDS ORDERED: RIVAROXABAN 15 MG TABLET PO ONE (15:27)
[2022-04-28] MEDS ORDERED: NEBIVOLOL 10 MG TABLET (FP) PO SCH (17:30)
[2022-04-28] MEDS ORDERED: LISINOPRIL 10 MG TABLET PO SCH ×2 (17:30→22:00)
[2022-04-28] MEDS ORDERED: amLODIPine BESYLATE 5 MG TABLET (FP) PO SCH ×2 (17:30→22:00)
[2022-04-28] MEDS ORDERED: RIVAROXABAN 15 MG TABLET PO SCH (17:45)
[2022-04-28] MEDS ORDERED: ACETAMINOPHEN 325 MG TABLET (FP) PO ONE (20:47)
[2022-04-28] MEDS ORDERED: ATORVASTATIN CA 40 MG TABLET (FP) PO SCH (22:00)
[2022-04-28] MEDS: NEBIVOLOL 10 MG TABLET (FP) PO SCH (22:48)
[2022-04-29] MEDS ORDERED: RIVAROXABAN 15 MG TABLET PO SCH (08:00)
[2022-04-29 08:25] LABS: ALBUMIN 3.3 g/dl (3.4-5.0); BILIRUBIN,TOTAL 0.8 mg/dl (0.2-1); CALCIUM 9.5 mg/dl (8.5-10); TOT PROT 6.5 g/dl (6.4-8.2)
[2022-04-29] MEDS ORDERED: ASPIRIN 81 MG CHEWABLE TABLETS PO ONE (09:39)
[2022-04-29] MEDS ORDERED: CLOPIDOGREL BISULFATE 300 MG TABLET PO ONE (09:39)
[2022-04-29 09:59] LABS: BASO % 0.8 % (0-2.0); EOS % 3.6 % (0-4.5); HEMATOCRIT 37.6 % (35.4-49); HEMOGLOBIN 12.7 GM/dL (11.7-16.9); LYMPH % 15.2 % (8-40); MCH 32.1 pg (25.7-33.7); MCHC 33.8 g/dl (32.0-35.9); MEAN PLT VOLUME 7.5 fl (7.5-11.1); MONO % 10.2 % (3.8-10.2); NEUT % 70.2 % (42.8-82.8); RBC 3.95 M/mm3 (4.00-5.60); RDW 13.3 % (11.9-15.9); WHITE BLOOD COUNT 12.2 K/mm3 (4.0-10.0)
[2022-04-29 10:15] LABS: CHOLESTEROL 167 mg/dl (50-200); HDL CHOLESTEROL 47 mg/dl (40-60); LDL CHOLESTEROL (ONLY DFH) 101 mg/dl (5-100); TRIGLYCERIDES 96 mg/dl (0-150)
[2022-04-29] MEDS: FAMOTIDINE 20 MG TABLET PO SCH (10:35)
[2022-04-29] MEDS: NEBIVOLOL 10 MG TABLET (FP) PO SCH (10:35)
[2022-04-29 10:48] LABS: PLATELET COUNT 135 10^3/uL (134-434)
[2022-04-29 17:17] LABS: COCAINE, UR NEGATIVE (NEGATIVE); METHADONE, UR NEGATIVE (NEGATIVE); OPIATES, URI NEGATIVE (NEGATIVE); PHENCYCLIDINE,URINE NEGATIVE (NEGATIVE); URINE BENZODIAZEPINES NEGATIVE (NEGATIVE)
[2022-04-29 17:18] LABS: URINE BARBITURATES NEGATIVE (NEGATIVE)
[2022-04-29 17:21] LABS: URINE AMPHETAMINES NEGATIVE (NEGATIVE)
[2022-04-29] MEDS ORDERED: ACETAMINOPHEN 1000 MG/100 ML BAG IVPB ONE (20:06)
[2022-04-29] MEDS: THIAMINE HCL 200 MG/2 ML VIAL IVPB SCH (20:59)
[2022-04-29] MEDS ORDERED: CHLORHEXIDINE GLUCONATE 4% CLEANSER FOR DECOLONIZATION TP SCH (22:00)
[2022-04-29] MEDS ORDERED: MUPIROCIN 2% TOPICAL OINTMENT FOR DECOLONIZATION NS SCH (22:00)
[2022-04-29] MEDS: ATORVASTATIN CA 40 MG TABLET (FP) PO SCH (22:17)
[2022-04-30] MEDS: THIAMINE HCL 200 MG/2 ML VIAL IVPB SCH ×3 (06:00→21:12)
[2022-04-30 08:33] LABS: INR 1.34 (0.83-1.09); PROTHROMBIN TIME (PATIENT) 15.4 SEC (9.7-13.0)
[2022-04-30 08:36] LABS: ACTIVATED PTT 26.8 SECONDS (25.2-36.5)
[2022-04-30 08:45] LABS: MAGNESIUM 1.8 mg/dL (1.8-2.4)
[2022-04-30 08:49] LABS: PHOSPHOROUS 3.8 mg/dL (2.5-4.9)
[2022-04-30 09:08] LABS: ALBUMIN 3.4 g/dl (3.4-5.0); BILIRUBIN,TOTAL 0.9 mg/dL (0.2-1); BLOOD UREA NITROGEN 17.5 mg/dL (7-18); CALCIUM 9.6 mg/dL (8.5-10.1); CREATININE 1.1 mg/dL (0.55-1.3); TOT PROT 7.2 g/dl (6.4-8.2)
[2022-04-30] MEDS ORDERED: CLOPIDOGREL BISULFATE 75 MG TABLET (FP) PO SCH (10:00)
[2022-04-30] MEDS ORDERED: ESCITALOPRAM OXALATE 10 MG TABLET PO SCH (10:00)
[2022-04-30] MEDS ORDERED: PANTOPRAZOLE 40 MG TABLET PO SCH (10:00)
[2022-04-30] MEDS: ASPIRIN 81 MG CHEWABLE TABLETS PO SCH (10:47)
[2022-04-30] MEDS: FAMOTIDINE 20 MG TABLET PO SCH (10:47)
[2022-04-30 11:22] LABS: HEMOGLOBIN 13.1 GM/dL (11.7-16.9); MCH 32.3 pg (25.7-33.7); MCHC 33.6 g/dl (32.0-35.9); PLATELET COUNT 145 10^3/uL (134-434); RBC 4.07 M/mm3 (4.00-5.60); RDW 13.1 % (11.9-15.9); WHITE BLOOD COUNT 10.9 K/mm3 (4.0-10.0)
[2022-04-30] MEDS ORDERED: ACETAMINOPHEN 325 MG TABLET (FP) PO ONE (15:48)
[2022-04-30] MEDS ORDERED: ACETAMINOPHEN 1000 MG/100 ML BAG IVPB STA (16:15)
[2022-04-30] MEDS: ATORVASTATIN CA 40 MG TABLET (FP) PO SCH (21:12)
[2022-05-01] MEDS: THIAMINE HCL 200 MG/2 ML VIAL IVPB SCH ×3 (06:00→21:19)
[2022-05-01] MEDS: FAMOTIDINE 20 MG TABLET PO SCH (10:26)
[2022-05-01] MEDS: ASPIRIN 81 MG CHEWABLE TABLETS PO SCH (10:26)
[2022-05-01] MEDS ORDERED: ACETAMINOPHEN 325 MG TABLET (FP) ONE (21:09)
[2022-05-01] MEDS: ATORVASTATIN CA 40 MG TABLET (FP) PO SCH (21:18)
[2022-05-02] MEDS: THIAMINE HCL 200 MG/2 ML VIAL IVPB SCH ×3 (06:01→20:03)
[2022-05-02 08:09] LABS: BASO % 0.8 % (0-2.0); EOS % 3.7 % (0-4.5); HEMATOCRIT 38.9 % (35.4-49); HEMOGLOBIN 12.9 GM/dL (11.7-16.9); LYMPH % 17.4 % (8-40); MCH 31.6 pg (25.7-33.7); MCHC 33.3 g/dl (32.0-35.9); MEAN CELL VOLUME 94.9 fl (80-96); MONO % 7.7 % (3.8-10.2); NEUT % 70.4 % (42.8-82.8); PLATELET COUNT 165 10^3/uL (134-434); RDW 13.1 % (11.9-15.9)
[2022-05-02 08:25] LABS: CHLORIDE 102 mmol/L (98-107); SODIUM 139 mmol/L (136-145)
[2022-05-02 08:28] LABS: CALCIUM 9.4 mg/dL (8.5-10.1)
[2022-05-02 08:29] LABS: BLOOD UREA NITROGEN 14.8 mg/dL (7-18)
[2022-05-02 08:30] LABS: ALBUMIN 3.4 g/dl (3.4-5.0); ANION GAP 10 MMOL/L (8-16); CO2 27 mmol/L (21-32); GLUCOSE,RANDOM 127 mg/dL (74-106)
[2022-05-02 08:31] LABS: MAGNESIUM 1.8 mg/dL (1.8-2.4)
[2022-05-02 08:32] LABS: SGPT/ALT 86 U/L (13-61)
[2022-05-02 08:33] LABS: BILIRUBIN,TOTAL 0.5 mg/dL (0.2-1); PHOSPHOROUS 3.6 mg/dL (2.5-4.9); SGOT/AST 75 U/L (15-37)
[2022-05-02 08:34] LABS: TOT PROT 7.2 g/dl (6.4-8.2)
[2022-05-02 08:46] LABS: ALK PHOS 386 U/L (45-117)
[2022-05-02] MEDS: ASPIRIN 81 MG CHEWABLE TABLETS PO SCH (13:12)
[2022-05-02] MEDS: NEBIVOLOL 10 MG TABLET (FP) PO SCH (13:12)
[2022-05-02] MEDS: FAMOTIDINE 20 MG TABLET PO SCH (13:12)
[2022-05-02] MEDS: ATORVASTATIN CA 80 MG TABLET (FP) PO SCH (21:41)
[2022-05-02] MEDS: PANTOPRAZOLE 40 MG TABLET PO SCH (22:22)
[2022-05-03] MEDS: THIAMINE HCL 200 MG/2 ML VIAL IVPB SCH ×3 (04:59→22:46)
[2022-05-03 07:59] LABS: BASO % 0.8 % (0-2.0); EOS % 3.5 % (0-4.5); HEMATOCRIT 35.6 % (35.4-49); HEMOGLOBIN 12.1 GM/dL (11.7-16.9); LYMPH % 14.4 % (8-40); MCH 32.1 pg (25.7-33.7); MEAN CELL VOLUME 94.5 fl (80-96); MEAN PLT VOLUME 7.9 fl (7.5-11.1); MONO % 7.9 % (3.8-10.2); NEUT % 73.4 % (42.8-82.8); PLATELET COUNT 141 10^3/uL (134-434); RBC 3.77 M/mm3 (4.00-5.60); RDW 12.9 % (11.9-15.9); WHITE BLOOD COUNT 13.8 K/mm3 (4.0-10.0)
[2022-05-03 08:28] LABS: ALBUMIN 3.2 g/dl (3.4-5.0); BLOOD UREA NITROGEN 16.4 mg/dL (7-18); CALCIUM 8.7 mg/dL (8.5-10.1); MAGNESIUM 1.8 mg/dL (1.8-2.4)
[2022-05-03 08:31] LABS: PHOSPHOROUS 3.7 mg/dL (2.5-4.9)
[2022-05-03 08:32] LABS: CREATININE 1.1 mg/dL (0.55-1.3)
[2022-05-03 08:33] LABS: BILIRUBIN,TOTAL 0.4 mg/dL (0.2-1); TOT PROT 6.7 g/dl (6.4-8.2)
[2022-05-03] MEDS: ASPIRIN 81 MG CHEWABLE TABLETS PO SCH (09:40)
[2022-05-03] MEDS: NEBIVOLOL 10 MG TABLET (FP) PO SCH (09:40)
[2022-05-03] MEDS: PANTOPRAZOLE 40 MG TABLET PO SCH ×2 (09:41→21:02)
[2022-05-03] MEDS ORDERED: FAMOTIDINE 20 MG TABLET PO SCH (10:00)
[2022-05-03] MEDS: ENOXAPARIN NA (PORCINE) 100 MG/1 ML DISP.SYRIN SQ SCH (19:03)
[2022-05-03 19:31] LABS: ALBUMIN 3.2 g/dl (3.4-5.0)
[2022-05-03 19:34] LABS: BILIRUBIN,DIRECT 0.2 mg/dL (0.0-0.2); BILIRUBIN,TOTAL 0.4 mg/dL (0.2-1); TOT PROT 6.6 g/dl (6.4-8.2)
[2022-05-03] MEDS: ATORVASTATIN CA 80 MG TABLET (FP) PO SCH (21:02)
[2022-05-04] MEDS: THIAMINE HCL 200 MG/2 ML VIAL IVPB SCH ×3 (05:28→20:22)
[2022-05-04] MEDS: ENOXAPARIN NA (PORCINE) 100 MG/1 ML DISP.SYRIN SQ SCH ×2 (06:12→20:22)
[2022-05-04 07:52] LABS: BASO % 0.9 % (0-2.0); EOS % 3.6 % (0-4.5); HEMATOCRIT 35.1 % (35.4-49); HEMOGLOBIN 11.9 GM/dL (11.7-16.9); LYMPH % 14.1 % (8-40); MCH 32.1 pg (25.7-33.7); MCHC 33.8 g/dl (32.0-35.9); MEAN CELL VOLUME 94.8 fl (80-96); MEAN PLT VOLUME 8.5 fl (7.5-11.1); MONO % 8.4 % (3.8-10.2); PLATELET COUNT 145 10^3/uL (134-434); WHITE BLOOD COUNT 12.6 K/mm3 (4.0-10.0)
[2022-05-04 08:26] LABS: MAGNESIUM 1.7 mg/dL (1.8-2.4)
[2022-05-04 08:28] LABS: BILIRUBIN,TOTAL 0.6 mg/dL (0.2-1); TOT PROT 6.6 g/dl (6.4-8.2)
[2022-05-04 08:29] LABS: PHOSPHOROUS 3.7 mg/dL (2.5-4.9)
[2022-05-04 08:31] LABS: BILIRUBIN,DIRECT 0.2 mg/dL (0.0-0.2)
[2022-05-04] MEDS ORDERED: IRON SUCROSE INJECTION 200 MG in SODIUM CHLORIDE 90 ML IVPB ONE (09:00)
[2022-05-04] MEDS ORDERED: MAGNESIUM SULF 50% (8.12 MEQ/2 ML-1 GM VIAL) IVPB ONE (09:29)
[2022-05-04] MEDS ORDERED: REGADENOSON 0.4 MG/5 ML PRE-FILLED SYRINGE IVPUSH ONE ×2 (09:55→12:34)
[2022-05-04] MEDS: PANTOPRAZOLE 40 MG TABLET PO SCH ×2 (10:00→21:03)
[2022-05-04] MEDS: ASPIRIN 81 MG CHEWABLE TABLETS PO SCH (10:00)
[2022-05-04] MEDS: NEBIVOLOL 10 MG TABLET (FP) PO SCH (10:01)
[2022-05-04] MEDS: REGADENOSON 0.4 MG/5 ML PRE-FILLED SYRINGE IVPUSH ONE ×2 (12:00→12:40)
[2022-05-04 14:47] VITALS: BMI 25.3
[2022-05-04] MEDS: ATORVASTATIN CA 80 MG TABLET (FP) PO SCH (21:03)
[2022-05-04 21:07] LABS: GLIADIN ANTIBODY IGA 3 units (0-19); GLIADIN ANTIBODY IGG 2 units (0-19); TRANSGLUTAMINASE IGG < 2 U/mL (0-5)
[2022-05-05] MEDS: THIAMINE HCL 200 MG/2 ML VIAL IVPB SCH ×3 (04:54→21:10)
[2022-05-05] MEDS: ENOXAPARIN NA (PORCINE) 100 MG/1 ML DISP.SYRIN SQ SCH ×2 (06:11→21:10)
[2022-05-05 09:13] LABS: BASO % 0.7 % (0-2.0); EOS % 4.5 % (0-4.5); HEMATOCRIT 35.5 % (35.4-49); HEMOGLOBIN 11.8 GM/dL (11.7-16.9); LYMPH % 15.7 % (8-40); MCH 31.5 pg (25.7-33.7); MCHC 33.3 g/dl (32.0-35.9); MEAN CELL VOLUME 94.7 fl (80-96); MEAN PLT VOLUME 8.2 fl (7.5-11.1); MONO % 9.7 % (3.8-10.2); NEUT % 69.4 % (42.8-82.8); PLATELET COUNT 195 10^3/uL (134-434); RBC 3.75 M/mm3 (4.00-5.60); RDW 13.1 % (11.9-15.9); WHITE BLOOD COUNT 11.4 K/mm3 (4.0-10.0)
[2022-05-05] MEDS: ASPIRIN 81 MG CHEWABLE TABLETS PO SCH (09:34)
[2022-05-05] MEDS: PANTOPRAZOLE 40 MG TABLET PO SCH ×2 (09:34→21:10)
[2022-05-05] MEDS: NEBIVOLOL 10 MG TABLET (FP) PO SCH (09:37)
[2022-05-05 09:51] LABS: ALBUMIN 3.2 g/dl (3.4-5.0); BLOOD UREA NITROGEN 14.5 mg/dL (7-18); MAGNESIUM 2.4 mg/dL (1.8-2.4)
[2022-05-05 09:53] LABS: BILIRUBIN,DIRECT 0.2 mg/dL (0.0-0.2)
[2022-05-05 09:55] LABS: BILIRUBIN,TOTAL 0.7 mg/dL (0.2-1); PHOSPHOROUS 4.3 mg/dL (2.5-4.9); TOT PROT 6.3 g/dl (6.4-8.2)
[2022-05-05] MEDS: ACETAMINOPHEN 325 MG TABLET (FP) PO PRN (21:10)
[2022-05-05] MEDS: ATORVASTATIN CA 80 MG TABLET (FP) PO SCH (21:10)
[2022-05-05] MEDS: POLYETHYLENE GLYCOL (HEALTHYLAX) 3350 17 GM PACKET PO SCH (21:10)
[2022-05-05] MEDS: HYDROCORTISONE 0.5% TOPICAL CREAM 30 GM TUBE TP PRN (22:44)
[2022-05-06] MEDS: THIAMINE HCL 200 MG/2 ML VIAL IVPB SCH ×3 (06:13→21:49)
[2022-05-06] MEDS: ENOXAPARIN NA (PORCINE) 100 MG/1 ML DISP.SYRIN SQ SCH ×2 (06:13→21:48)
[2022-05-06 08:47] LABS: BASO % 1.5 % (0-2.0); EOS % 4.5 % (0-4.5); HEMATOCRIT 36.6 % (35.4-49); HEMOGLOBIN 12.3 GM/dL (11.7-16.9); LYMPH % 11.9 % (8-40); MCH 31.7 pg (25.7-33.7); MCHC 33.6 g/dl (32.0-35.9); MEAN CELL VOLUME 94.4 fl (80-96); MEAN PLT VOLUME 7.9 fl (7.5-11.1); MONO % 8.4 % (3.8-10.2); NEUT % 73.7 % (42.8-82.8); PLATELET COUNT 231 10^3/uL (134-434); RBC 3.88 M/mm3 (4.00-5.60); RDW 13.1 % (11.9-15.9); WHITE BLOOD COUNT 10.6 K/mm3 (4.0-10.0)
[2022-05-06 09:03] LABS: ALBUMIN 3.1 g/dl (3.4-5.0); BLOOD UREA NITROGEN 14.4 mg/dL (7-18); CALCIUM 9.2 mg/dL (8.5-10.1)
[2022-05-06 09:06] LABS: BILIRUBIN,TOTAL 0.8 mg/dL (0.2-1); PHOSPHOROUS 3.8 mg/dL (2.5-4.9); TOT PROT 6.6 g/dl (6.4-8.2)
[2022-05-06] MEDS: amLODIPine BESYLATE 2.5 MG TABLET (FP) PO SCH (09:56)
[2022-05-06] MEDS: NEBIVOLOL 10 MG TABLET (FP) PO SCH (09:56)
[2022-05-06] MEDS: PANTOPRAZOLE 40 MG TABLET PO SCH ×2 (09:57→21:49)
[2022-05-06] MEDS: ASPIRIN 81 MG CHEWABLE TABLETS PO SCH (09:57)
[2022-05-06] MEDS: POLYETHYLENE GLYCOL (HEALTHYLAX) 3350 17 GM PACKET PO SCH ×2 (10:00→21:49)
[2022-05-06] MEDS: HYDROCORTISONE 0.5% TOPICAL CREAM 30 GM TUBE TP PRN (21:49)
[2022-05-06] MEDS: ATORVASTATIN CA 80 MG TABLET (FP) PO SCH (21:49)
[2022-05-07] MEDS: THIAMINE HCL 200 MG/2 ML VIAL IVPB SCH ×3 (03:44→20:11)
[2022-05-07] MEDS: ENOXAPARIN NA (PORCINE) 100 MG/1 ML DISP.SYRIN SQ SCH ×2 (06:18→20:11)
[2022-05-07 09:07] LABS: BASO % 0.9 % (0-2.0); EOS % 3.6 % (0-4.5); HEMATOCRIT 38.2 % (35.4-49); LYMPH % 13.1 % (8-40); MCH 32.1 pg (25.7-33.7); MEAN CELL VOLUME 94.4 fl (80-96); MEAN PLT VOLUME 7.2 fl (7.5-11.1); MONO % 8.8 % (3.8-10.2); NEUT % 73.6 % (42.8-82.8); PLATELET COUNT 336 10^3/uL (134-434); RBC 4.05 M/mm3 (4.00-5.60); RDW 12.7 % (11.9-15.9); WHITE BLOOD COUNT 12.6 K/mm3 (4.0-10.0)
[2022-05-07] MEDS: amLODIPine BESYLATE 2.5 MG TABLET (FP) PO SCH (09:11)
[2022-05-07] MEDS: NEBIVOLOL 10 MG TABLET (FP) PO SCH (09:11)
[2022-05-07] MEDS: ASPIRIN 81 MG CHEWABLE TABLETS PO SCH (09:12)
[2022-05-07] MEDS: POLYETHYLENE GLYCOL (HEALTHYLAX) 3350 17 GM PACKET PO SCH ×2 (09:12→21:12)
[2022-05-07] MEDS: PANTOPRAZOLE 40 MG TABLET PO SCH ×2 (09:12→21:12)
[2022-05-07 09:34] LABS: BLOOD UREA NITROGEN 18.8 mg/dL (7-18); CALCIUM 9.4 mg/dL (8.5-10.1)
[2022-05-07 09:35] LABS: MAGNESIUM 1.9 mg/dL (1.8-2.4)
[2022-05-07 09:36] LABS: ALBUMIN 3.5 g/dl (3.4-5.0)
[2022-05-07 09:38] LABS: PHOSPHOROUS 3.8 mg/dL (2.5-4.9)
[2022-05-07 09:39] LABS: BILIRUBIN,TOTAL 0.6 mg/dL (0.2-1); CREATININE 1.1 mg/dL (0.55-1.3); TOT PROT 7.4 g/dl (6.4-8.2)
[2022-05-07] MEDS: ATORVASTATIN CA 80 MG TABLET (FP) PO SCH (21:12)
[2022-05-07] MEDS ORDERED: MELATONIN 5 MG TABLETS PO ONE (21:54)
[2022-05-08] MEDS: THIAMINE HCL 200 MG/2 ML VIAL IVPB SCH ×3 (04:51→20:59)
[2022-05-08] MEDS: ENOXAPARIN NA (PORCINE) 100 MG/1 ML DISP.SYRIN SQ SCH (06:20)
[2022-05-08 08:07] LABS: EOS % 3.2 % (0-4.5); HEMATOCRIT 35.9 % (35.4-49); HEMOGLOBIN 12.3 GM/dL (11.7-16.9); LYMPH % 13.9 % (8-40); MCH 32.2 pg (25.7-33.7); MCHC 34.3 g/dl (32.0-35.9); MEAN CELL VOLUME 93.7 fl (80-96); MEAN PLT VOLUME 7.8 fl (7.5-11.1); MONO % 10.3 % (3.8-10.2); NEUT % 71.6 % (42.8-82.8); PLATELET COUNT 315 10^3/uL (134-434); RBC 3.83 M/mm3 (4.00-5.60); RDW 12.9 % (11.9-15.9); WHITE BLOOD COUNT 12.5 K/mm3 (4.0-10.0)
[2022-05-08 08:24] LABS: CALCIUM 9.1 mg/dL (8.5-10.1)
[2022-05-08 08:25] LABS: ALBUMIN 3.3 g/dl (3.4-5.0); BLOOD UREA NITROGEN 16.4 mg/dL (7-18)
[2022-05-08 08:29] LABS: BILIRUBIN,TOTAL 0.7 mg/dL (0.2-1)
[2022-05-08] MEDS ORDERED: PEG 3350/NA SULF BICARB CL/KCL 4000 ML SOLN.RECON PO ONE (09:00)
[2022-05-08] MEDS: NEBIVOLOL 10 MG TABLET (FP) PO SCH (09:20)
[2022-05-08] MEDS: ASPIRIN 81 MG CHEWABLE TABLETS PO SCH (09:21)
[2022-05-08] MEDS: amLODIPine BESYLATE 2.5 MG TABLET (FP) PO SCH (09:21)
[2022-05-08] MEDS: POLYETHYLENE GLYCOL (HEALTHYLAX) 3350 17 GM PACKET PO SCH ×2 (09:21→21:06)
[2022-05-08] MEDS: PANTOPRAZOLE 40 MG TABLET PO SCH ×2 (09:21→20:59)
[2022-05-08] MEDS: ACETAMINOPHEN 325 MG TABLET (FP) PO PRN ×2 (09:24→21:07)
[2022-05-08] MEDS ORDERED: BISACODYL 5 MG TABLET.DR (FP) PO ONE (20:00)
[2022-05-08] MEDS ORDERED: MELATONIN 5 MG TABLETS PO ONE (20:15)
[2022-05-08] MEDS: ATORVASTATIN CA 80 MG TABLET (FP) PO SCH (21:03)
[2022-05-09] MEDS: THIAMINE HCL 200 MG/2 ML VIAL IVPB SCH (06:21)
[2022-05-09] MEDS: POLYETHYLENE GLYCOL (HEALTHYLAX) 3350 17 GM PACKET PO SCH ×2 (10:00→21:09)
[2022-05-09] MEDS: PANTOPRAZOLE 40 MG TABLET PO SCH ×2 (10:53→21:09)
[2022-05-09] MEDS: amLODIPine BESYLATE 2.5 MG TABLET (FP) PO SCH (10:53)
[2022-05-09] MEDS: THIAMINE HCL 100 MG TABLET (FP) PO SCH (10:53)
[2022-05-09] MEDS: ASPIRIN 81 MG CHEWABLE TABLETS PO SCH (10:54)
[2022-05-09] MEDS: NEBIVOLOL 10 MG TABLET (FP) PO SCH (10:54)
[2022-05-09] MEDS: ACETAMINOPHEN 325 MG TABLET (FP) PO PRN ×2 (11:13→21:09)
[2022-05-09] MEDS: predniSONE 20 MG TABLET (UD) PO SCH (14:30)
[2022-05-09] MEDS: ATORVASTATIN CA 80 MG TABLET (FP) PO SCH (21:09)
[2022-05-10 07:13] LABS: BASO % 0.2 % (0-2.0); HEMOGLOBIN 11.7 GM/dL (11.7-16.9); LYMPH % 7.8 % (8-40); MCH 31.7 pg (25.7-33.7); MCHC 34.3 g/dl (32.0-35.9); MEAN CELL VOLUME 92.2 fl (80-96); MEAN PLT VOLUME 7.5 fl (7.5-11.1); MONO % 7.5 % (3.8-10.2); NEUT % 84.5 % (42.8-82.8); PLATELET COUNT 235 10^3/uL (134-434); RBC 3.68 M/mm3 (4.00-5.60); RDW 12.9 % (11.9-15.9); WHITE BLOOD COUNT 14.8 K/mm3 (4.0-10.0)
[2022-05-10 07:33] LABS: ALBUMIN 2.8 g/dl (3.4-5.0); BLOOD UREA NITROGEN 18.1 mg/dL (7-18); CALCIUM 8.9 mg/dL (8.5-10.1); MAGNESIUM 1.8 mg/dL (1.8-2.4)
[2022-05-10 07:36] LABS: PHOSPHOROUS 3.6 mg/dL (2.5-4.9)
[2022-05-10 07:38] LABS: BILIRUBIN,TOTAL 0.8 mg/dL (0.2-1); TOT PROT 6.6 g/dl (6.4-8.2)
[2022-05-10] MEDS: amLODIPine BESYLATE 2.5 MG TABLET (FP) PO SCH (09:37)
[2022-05-10] MEDS: ASPIRIN 81 MG CHEWABLE TABLETS PO SCH (09:37)
[2022-05-10] MEDS: predniSONE 20 MG TABLET (UD) PO SCH (09:38)
[2022-05-10] MEDS: THIAMINE HCL 100 MG TABLET (FP) PO SCH (09:38)
[2022-05-10] MEDS: PANTOPRAZOLE 40 MG TABLET PO SCH ×2 (09:38→21:03)
[2022-05-10] MEDS: NEBIVOLOL 10 MG TABLET (FP) PO SCH (09:39)
[2022-05-10] MEDS: POLYETHYLENE GLYCOL (HEALTHYLAX) 3350 17 GM PACKET PO SCH ×2 (09:42→21:03)
[2022-05-10 09:56] LABS: EPI CELLS 6 /uL (0-25.1); HYALINE CASTS 4 /uL (0-3.1); PH,URINE 5.5 (5.0-8.0); URINE APPEARANCE CLEAR; URINE BACTERIA 4 /uL (0-1359); URINE BILIRUBIN NEGATIVE (NEGATIVE); URINE COLOR YELLOW; URINE GLUCOSE (UA) NEGATIVE (NEGATIVE); URINE KETONE NEGATIVE (NEGATIVE); URINE LEUK ESTERASE NEGATIVE (NEGATIVE); URINE NITRITE NEGATIVE (NEGATIVE); URINE PROTEIN 1+ (NEGATIVE); URINE RBC 9 /uL (0-23.9); URINE UROBILINOGEN 0.2 mg/dL (0.2-1.0); URINE WBC 8 /uL (0-25.8)
[2022-05-10 18:35] VITALS: TEMP 98.6
[2022-05-10] MEDS: ENOXAPARIN NA (PORCINE) 100 MG/1 ML DISP.SYRIN SQ SCH (19:27)
[2022-05-10] MEDS: ATORVASTATIN CA 80 MG TABLET (FP) PO SCH (21:03)
[2022-05-10 21:39] VITALS: BP 151/59; PULSE 55; RESP 18
== END 2022-05-10 21:21 | disposition short-term general hospital (02) | DRG 280 ==
LOC: FER 12:07 → FM/S 16:14 → OBSVTOIN 04-29 10:33 → JICU 04-29 19:11 → J4S 05-02 19:34
PROVIDERS: ADMIT Internal Medicine
PROC: 0DBN8ZX Excision of Sigmoid Colon, Via Natural or Artificial Opening Endoscopic, Diagnostic (ICD-10-PCS; 2022-05-09)
PROC: 0DBP8ZX Excision of Rectum, Via Natural or Artificial Opening Endoscopic, Diagnostic (ICD-10-PCS; 2022-05-09)
PROC: 0DBL8ZX Excision of Transverse Colon, Via Natural or Artificial Opening Endoscopic, Diagnostic (ICD-10-PCS; 2022-05-09)
PROC: 0DB58ZX Excision of Esophagus, Via Natural or Artificial Opening Endoscopic, Diagnostic (ICD-10-PCS; 2022-05-09)
PROC: 0DBH8ZX Excision of Cecum, Via Natural or Artificial Opening Endoscopic, Diagnostic (ICD-10-PCS; principal; 2022-05-09 12:00)
DX: I21.A1 Myocardial infarction type 2 (principal); I63.89 Other cerebral infarction; K83.1 Obstruction of bile duct; E51.2 Wernicke's encephalopathy; C78.7 Secondary malignant neoplasm of liver and intrahepatic bile duct; C78.6 Secondary malignant neoplasm of retroperitoneum and peritoneum; C78.89 Secondary malignant neoplasm of other digestive organs; I10 Essential (primary) hypertension; E78.5 Hyperlipidemia, unspecified; I25.10 Atherosclerotic heart disease of native coronary artery without angina pectoris; R41.82 Altered mental status, unspecified; K57.30 Diverticulosis of large intestine without perforation or abscess without bleeding; K21.9 Gastro-esophageal reflux disease without esophagitis; F10.20 Alcohol dependence, uncomplicated; I08.0 Rheumatic disorders of both mitral and aortic valves; I48.91 Unspecified atrial fibrillation; D50.0 Iron deficiency anemia secondary to blood loss (chronic); K44.9 Diaphragmatic hernia without obstruction or gangrene; K64.8 Other hemorrhoids; R74.8 Abnormal levels of other serum enzymes; I16.0 Hypertensive urgency; J32.2 Chronic ethmoidal sinusitis; Z86.718 Personal history of other venous thrombosis and embolism; Z95.5 Presence of coronary angioplasty implant and graft; Z87.11 Personal history of peptic ulcer disease
CPT/HCPCS: 0241U-QW; 36415; 70450-TC; 70551-TC; 71045-TC-FY; 74181-TC; 78452-TC; 80048; 80053; 80061; 80076; 80307; 81003; 81015; 82105; 82136; 82140; 82378; 82550; 82607; 82728; 82784; 82962; 83036; 83516; 83540; 83550; 83735; 83918; 84100; 84443; 84484; 85025; 85027; 85610; 85730; 86038; 86140; 86301; 86705; 86780; 86803; 87040; 87086; 87186; 87340; 87517; 88305-TC; 93005; 93017; 93306-TC; 93880-TC; 93970-TC; 97116-GP; 97161-GP; 99285-25; A9502; C9803-CS; G0378; J1756; J2785; U0003; U0005

== ENCOUNTER 2022-05-18 20:06 | Inpatient (IN) | payer OTHER ==
[2022-05-18] MEDS ORDERED: ACETAMINOPHEN 1000 MG/100 ML BAG IVPB ONE (21:40)
[2022-05-18] MEDS ORDERED: FAMOTIDINE 20 MG/50 ML IVPB 20 MG/50 ML MG IVPB ONE ×2 (21:40→22:16)
[2022-05-18] MEDS ORDERED: SODIUM CHLORIDE 1,000 ML IV STA (21:40)
[2022-05-18] MEDS ORDERED: ACETAMINOPHEN INJECTION 100 ML IVPB ONE (22:16)
[2022-05-18 22:41] LABS: BASO % 0.6 % (0-2.0); EOS % 1.2 % (0-4.5); HEMATOCRIT 33.3 % (35.4-49); HEMOGLOBIN 11.5 GM/dL (11.7-16.9); LYMPH % 8.3 % (8-40); MCH 31.8 pg (25.7-33.7); MCHC 34.4 g/dl (32.0-35.9); MEAN CELL VOLUME 92.6 fl (80-96); MEAN PLT VOLUME 7.4 fl (7.5-11.1); MONO % 8.5 % (3.8-10.2); NEUT % 81.4 % (42.8-82.8); PLATELET COUNT 148 10^3/uL (134-434); RDW 13.2 % (11.9-15.9)
[2022-05-18 23:02] LABS: CALCIUM 8.8 mg/dL (8.5-10.1)
[2022-05-18 23:03] LABS: ALBUMIN 2.8 g/dl (3.4-5.0)
[2022-05-18 23:06] LABS: BILIRUBIN,DIRECT 0.7 mg/dL (0.0-0.2)
[2022-05-18 23:07] LABS: CREATININE 1.2 mg/dL (0.55-1.3); TOT PROT 6.7 g/dl (6.4-8.2)
[2022-05-18] MEDS ORDERED: morphine CARPU-JECT 4 MG/1 ML DISP.SYRIN IVPUSH ONE (23:23)
[2022-05-18] MEDS ORDERED: morphine SULFATE 4 MG/ML VIAL ONE (23:26)
[2022-05-19 00:25] LABS: EPI CELLS 14 /uL (0-25.1); HYALINE CASTS 14 /uL (0-3.1); URINE APPEARANCE CLOUDY; URINE BACTERIA 4 /uL (0-1359); URINE BILIRUBIN 1+ (NEGATIVE); URINE COLOR DK YELLOW; URINE GLUCOSE (UA) NEGATIVE (NEGATIVE); URINE KETONE TRACE (NEGATIVE); URINE LEUK ESTERASE NEGATIVE (NEGATIVE); URINE NITRITE NEGATIVE (NEGATIVE); URINE PROTEIN 1+ (NEGATIVE); URINE UROBILINOGEN 0.2 mg/dL (0.2-1.0); URINE WBC 30 /uL (0-25.8)
[2022-05-19] MEDS ORDERED: ENOXAPARIN NA (PORCINE) 80 MG/0.8 ML DISP.SYRIN SQ ONE (01:47)
[2022-05-19] MEDS ORDERED: morphine CARPU-JECT 4 MG/1 ML DISP.SYRIN IVPUSH ONE (01:55)
[2022-05-19] MEDS ORDERED: ENOXAPARIN NA (PORCINE) 100 MG/1 ML DISP.SYRIN SQ ONE ×2 (02:24→21:45)
[2022-05-19] MEDS ORDERED: morphine SULFATE 4 MG/ML VIAL ONE (02:24)
[2022-05-19] MEDS ORDERED: HYDROmorphone HCL CARPU-JECT 2 MG/1 ML DISP.SYRIN IVPB PRN (05:06)
[2022-05-19] MEDS ORDERED: HYDROmorphone HCl 2 MG/ML VIAL ONE ×3 (05:23→18:23)
[2022-05-19 08:09] LABS: HEMOGLOBIN 11.4 GM/dL (11.7-16.9); MCHC 33.4 g/dl (32.0-35.9); MEAN CELL VOLUME 92.8 fl (80-96); MEAN PLT VOLUME 8.2 fl (7.5-11.1); PLATELET COUNT 157 10^3/uL (134-434); RBC 3.66 M/mm3 (4.00-5.60); RDW 13.3 % (11.9-15.9)
[2022-05-19 08:22] LABS: ALBUMIN 2.7 g/dl (3.4-5.0); BLOOD UREA NITROGEN 18.8 mg/dL (7-18); CALCIUM 8.4 mg/dL (8.5-10.1)
[2022-05-19 08:23] LABS: CREATININE 0.9 mg/dL (0.55-1.3); PHOSPHOROUS 3.5 mg/dL (2.5-4.9)
[2022-05-19 08:24] LABS: MAGNESIUM 1.6 mg/dL (1.8-2.4)
[2022-05-19 08:25] LABS: BILIRUBIN,TOTAL 0.9 mg/dL (0.2-1); TOT PROT 6.2 g/dl (6.4-8.2)
[2022-05-19] MEDS ORDERED: MAGNESIUM SULF 50% (8.12 MEQ/2 ML-1 GM VIAL) IVPB ONE (09:01)
[2022-05-19] MEDS ORDERED: MAGNESIUM SULFATE IN WATER 2 GM/50 ML IVPB IVPB ONE (09:44)
[2022-05-19] MEDS ORDERED: NEBIVOLOL 10 MG TABLET (FP) PO SCH (10:00)
[2022-05-19] MEDS ORDERED: LISINOPRIL 10 MG TABLET PO SCH (10:00)
[2022-05-19] MEDS: PANTOPRAZOLE SODIUM 40 MG VIAL IVPUSH SCH (10:02)
[2022-05-19] MEDS: HYDROmorphone HCl 2 MG/ML VIAL IVPB PRN ×2 (10:02→18:28)
[2022-05-19] MEDS: THIAMINE HCL 200 MG/2 ML VIAL IVPB SCH (10:02)
[2022-05-19] MEDS: amLODIPine BESYLATE 5 MG TABLET (FP) PO SCH (10:02)
[2022-05-19] MEDS: FOLIC ACID 1 MG TABLET (FP) PO SCH (10:03)
[2022-05-19] MEDS: FERROUS SO4 325 MG TABLET (FP) PO SCH (10:03)
[2022-05-19] MEDS: ENOXAPARIN NA (PORCINE) 100 MG/1 ML DISP.SYRIN SQ SCH ×2 (10:03→21:49)
[2022-05-19] MEDS ORDERED: PANTOPRAZOLE SODIUM 40 MG VIAL ONE (10:42)
[2022-05-19] MEDS ORDERED: ATORVASTATIN CA 80 MG TABLET (FP) ONE (21:45)
[2022-05-19] MEDS: ATORVASTATIN CA 80 MG TABLET (FP) PO SCH (21:49)
[2022-05-20] MEDS: HYDROmorphone HCl 2 MG/ML VIAL IVPB PRN ×5 (02:15→21:38)
[2022-05-20 07:22] LABS: HEMATOCRIT 30.6 % (35.4-49); HEMOGLOBIN 10.4 GM/dL (11.7-16.9); MCHC 33.8 g/dl (32.0-35.9); MEAN CELL VOLUME 91.7 fl (80-96); MEAN PLT VOLUME 7.6 fl (7.5-11.1); PLATELET COUNT 183 10^3/uL (134-434); RBC 3.34 M/mm3 (4.00-5.60); RDW 13.2 % (11.9-15.9); WHITE BLOOD COUNT 16.2 K/mm3 (4.0-10.0)
[2022-05-20 07:49] LABS: ALBUMIN 2.4 g/dl (3.4-5.0); BLOOD UREA NITROGEN 22.5 mg/dL (7-18); CALCIUM 8.3 mg/dL (8.5-10.1)
[2022-05-20 07:52] LABS: CREATININE 0.9 mg/dL (0.55-1.3)
[2022-05-20 07:53] LABS: BILIRUBIN,TOTAL 0.9 mg/dL (0.2-1); TOT PROT 5.9 g/dl (6.4-8.2)
[2022-05-20] MEDS: ENOXAPARIN NA (PORCINE) 100 MG/1 ML DISP.SYRIN SQ SCH ×2 (10:22→21:38)
[2022-05-20] MEDS: FOLIC ACID 1 MG TABLET (FP) PO SCH (10:25)
[2022-05-20] MEDS: FERROUS SO4 325 MG TABLET (FP) PO SCH (10:25)
[2022-05-20] MEDS: PANTOPRAZOLE SODIUM 40 MG VIAL IVPUSH SCH (10:26)
[2022-05-20] MEDS: amLODIPine BESYLATE 5 MG TABLET (FP) PO SCH (10:26)
[2022-05-20] MEDS: THIAMINE HCL 200 MG/2 ML VIAL IVPB SCH (10:34)
[2022-05-20 18:58] VITALS: BMI 25.1
[2022-05-20] MEDS: ATORVASTATIN CA 80 MG TABLET (FP) PO SCH (21:38)
[2022-05-21] MEDS: HYDROmorphone HCl 2 MG/ML VIAL IVPB PRN ×4 (02:46→21:54)
[2022-05-21 07:45] LABS: HEMATOCRIT 31.3 % (35.4-49); HEMOGLOBIN 10.8 GM/dL (11.7-16.9); MCH 31.4 pg (25.7-33.7); MCHC 34.4 g/dl (32.0-35.9); MEAN CELL VOLUME 91.2 fl (80-96); MEAN PLT VOLUME 7.7 fl (7.5-11.1); PLATELET COUNT 218 10^3/uL (134-434); RBC 3.43 M/mm3 (4.00-5.60); RDW 13.4 % (11.9-15.9)
[2022-05-21 07:52] LABS: CALCIUM 8.2 mg/dL (8.5-10.1)
[2022-05-21 07:53] LABS: ALBUMIN 2.4 g/dl (3.4-5.0); BLOOD UREA NITROGEN 16.1 mg/dL (7-18)
[2022-05-21 07:56] LABS: CREATININE 0.8 mg/dL (0.55-1.3)
[2022-05-21 07:59] LABS: BILIRUBIN,TOTAL 0.8 mg/dL (0.2-1)
[2022-05-21] MEDS: ENOXAPARIN NA (PORCINE) 100 MG/1 ML DISP.SYRIN SQ SCH ×2 (09:50→21:50)
[2022-05-21] MEDS: FOLIC ACID 1 MG TABLET (FP) PO SCH (09:50)
[2022-05-21] MEDS: FERROUS SO4 325 MG TABLET (FP) PO SCH (09:50)
[2022-05-21] MEDS: PANTOPRAZOLE SODIUM 40 MG VIAL IVPUSH SCH (09:50)
[2022-05-21] MEDS: amLODIPine BESYLATE 5 MG TABLET (FP) PO SCH (09:50)
[2022-05-21] MEDS: THIAMINE HCL 200 MG/2 ML VIAL IVPB SCH (10:00)
[2022-05-21] MEDS: ATORVASTATIN CA 80 MG TABLET (FP) PO SCH (21:48)
[2022-05-22] MEDS: HYDROmorphone HCl 2 MG/ML VIAL IVPB PRN (05:18)
[2022-05-22] MEDS: amLODIPine BESYLATE 5 MG TABLET (FP) PO SCH (09:24)
[2022-05-22] MEDS: FERROUS SO4 325 MG TABLET (FP) PO SCH (09:24)
[2022-05-22] MEDS: FOLIC ACID 1 MG TABLET (FP) PO SCH (09:24)
[2022-05-22] MEDS: THIAMINE HCL 200 MG/2 ML VIAL IVPB SCH (09:24)
[2022-05-22] MEDS: ENOXAPARIN NA (PORCINE) 100 MG/1 ML DISP.SYRIN SQ SCH ×2 (09:25→21:44)
[2022-05-22] MEDS: PANTOPRAZOLE SODIUM 40 MG VIAL IVPUSH SCH (09:25)
[2022-05-22] MEDS: oxyCODONE HCL 5 MG TABLET PO PRN ×2 (14:22→19:48)
[2022-05-22] MEDS: ACETAMINOPHEN 325 MG TABLET (FP) PO PRN (18:12)
[2022-05-22] MEDS: ATORVASTATIN CA 80 MG TABLET (FP) PO SCH (21:44)
[2022-05-23] MEDS: oxyCODONE HCL 5 MG TABLET PO PRN (01:00)
[2022-05-23] MEDS: ACETAMINOPHEN 325 MG TABLET (FP) PO PRN ×2 (03:42→16:53)
[2022-05-23] MEDS: amLODIPine BESYLATE 5 MG TABLET (FP) PO SCH (09:37)
[2022-05-23] MEDS: FOLIC ACID 1 MG TABLET (FP) PO SCH (09:37)
[2022-05-23] MEDS: FERROUS SO4 325 MG TABLET (FP) PO SCH (09:37)
[2022-05-23] MEDS: ENOXAPARIN NA (PORCINE) 100 MG/1 ML DISP.SYRIN SQ SCH ×2 (09:37→21:40)
[2022-05-23] MEDS: PANTOPRAZOLE SODIUM 40 MG VIAL IVPUSH SCH (09:38)
[2022-05-23] MEDS: THIAMINE HCL 200 MG/2 ML VIAL IVPB SCH (09:38)
[2022-05-23 12:45] LABS: ALBUMIN 2.2 g/dl (3.4-5.0); BLOOD UREA NITROGEN 10.6 mg/dL (7-18); CALCIUM 7.7 mg/dL (8.5-10.1); HEMATOCRIT 31.2 % (35.4-49); HEMOGLOBIN 10.6 GM/dL (11.7-16.9); MCHC 34.1 g/dl (32.0-35.9); MEAN CELL VOLUME 90.7 fl (80-96); MEAN PLT VOLUME 7.2 fl (7.5-11.1); PLATELET COUNT 220 10^3/uL (134-434); RBC 3.44 M/mm3 (4.00-5.60); RDW 13.2 % (11.9-15.9); WHITE BLOOD COUNT 12.2 K/mm3 (4.0-10.0)
[2022-05-23 12:48] LABS: CREATININE 0.7 mg/dL (0.55-1.3)
[2022-05-23 12:50] LABS: BILIRUBIN,TOTAL 0.7 mg/dL (0.2-1); TOT PROT 5.7 g/dl (6.4-8.2)
[2022-05-23] MEDS: ATORVASTATIN CA 80 MG TABLET (FP) PO SCH (21:40)
[2022-05-24 07:29] LABS: HEMATOCRIT 31.2 % (35.4-49); HEMOGLOBIN 10.7 GM/dL (11.7-16.9); MCH 30.9 pg (25.7-33.7); MCHC 34.3 g/dl (32.0-35.9); MEAN PLT VOLUME 7.4 fl (7.5-11.1); PLATELET COUNT 217 10^3/uL (134-434); RBC 3.47 M/mm3 (4.00-5.60); RDW 13.6 % (11.9-15.9)
[2022-05-24 07:50] LABS: ALBUMIN 2.2 g/dl (3.4-5.0); BLOOD UREA NITROGEN 9.7 mg/dL (7-18); CALCIUM 8.4 mg/dL (8.5-10.1); MAGNESIUM 1.6 mg/dL (1.8-2.4)
[2022-05-24 07:53] LABS: CREATININE 0.7 mg/dL (0.55-1.3)
[2022-05-24 07:55] LABS: BILIRUBIN,TOTAL 0.9 mg/dL (0.2-1); TOT PROT 5.8 g/dl (6.4-8.2)
[2022-05-24] MEDS ORDERED: LIDOCAINE 5% TOPICAL PATCH TP ONE (08:42)
[2022-05-24] MEDS: PANTOPRAZOLE SODIUM 40 MG VIAL IVPUSH SCH (10:08)
[2022-05-24] MEDS: THIAMINE HCL 200 MG/2 ML VIAL IVPB SCH (10:09)
[2022-05-24] MEDS: ENOXAPARIN NA (PORCINE) 100 MG/1 ML DISP.SYRIN SQ SCH ×2 (10:09→22:23)
[2022-05-24] MEDS: FERROUS SO4 325 MG TABLET (FP) PO SCH (10:10)
[2022-05-24] MEDS: amLODIPine BESYLATE 5 MG TABLET (FP) PO SCH (10:10)
[2022-05-24] MEDS: FOLIC ACID 1 MG TABLET (FP) PO SCH (10:10)
[2022-05-24] MEDS: PIPERACILLIN/TAZOB 3.375 GM 3.375 GM in DEXTROSE 5%-WATER - 50 ML IVPB SCH ×2 (12:33→19:33)
[2022-05-24] MEDS ORDERED: MAGNESIUM SULF 50% (8.12 MEQ/2 ML-1 GM VIAL) IVPB ONE (15:03)
[2022-05-24] MEDS: ATORVASTATIN CA 80 MG TABLET (FP) PO SCH (22:23)
[2022-05-24] MEDS: LIDOCAINE PATCH REMOVAL MC SCH (22:25)
[2022-05-25] MEDS ORDERED: PIPERACILLIN/TAZOB 3.375 GM 3.375 GM in DEXTROSE 5%-WATER - 50 ML IVPB SCH (02:00)
[2022-05-25] MEDS: PIPERACILLIN/TAZOB 3.375 GM 3.375 GM in DEXTROSE 5%-WATER - 50 ML IVPB SCH ×3 (02:10→17:30)
[2022-05-25 03:13] VITALS: RESP 18
[2022-05-25 06:53] LABS: HEMATOCRIT 30.4 % (35.4-49); HEMOGLOBIN 10.6 GM/dL (11.7-16.9); MCH 31.3 pg (25.7-33.7); MCHC 34.8 g/dl (32.0-35.9); MEAN CELL VOLUME 89.9 fl (80-96); MEAN PLT VOLUME 7.5 fl (7.5-11.1); PLATELET COUNT 228 10^3/uL (134-434); RBC 3.38 M/mm3 (4.00-5.60); RDW 13.5 % (11.9-15.9); WHITE BLOOD COUNT 11.4 K/mm3 (4.0-10.0)
[2022-05-25 07:23] LABS: ALBUMIN 2.2 g/dl (3.4-5.0); BLOOD UREA NITROGEN 9.2 mg/dL (7-18); MAGNESIUM 1.8 mg/dL (1.8-2.4)
[2022-05-25 07:26] LABS: CREATININE 0.8 mg/dL (0.55-1.3)
[2022-05-25 07:28] LABS: BILIRUBIN,TOTAL 0.9 mg/dL (0.2-1); TOT PROT 5.8 g/dl (6.4-8.2)
[2022-05-25] MEDS: oxyCODONE HCL 5 MG TABLET PO PRN ×2 (09:42→21:11)
[2022-05-25] MEDS: amLODIPine BESYLATE 5 MG TABLET (FP) PO SCH (09:43)
[2022-05-25] MEDS: ENOXAPARIN NA (PORCINE) 100 MG/1 ML DISP.SYRIN SQ SCH ×2 (09:43→21:10)
[2022-05-25] MEDS: FERROUS SO4 325 MG TABLET (FP) PO SCH (09:43)
[2022-05-25] MEDS: PANTOPRAZOLE SODIUM 40 MG VIAL IVPUSH SCH (09:44)
[2022-05-25] MEDS: FOLIC ACID 1 MG TABLET (FP) PO SCH (09:50)
[2022-05-25] MEDS: THIAMINE HCL 200 MG/2 ML VIAL IVPB SCH (10:29)
[2022-05-25] MEDS: ATORVASTATIN CA 80 MG TABLET (FP) PO SCH (21:10)
[2022-05-25] MEDS: LIDOCAINE PATCH REMOVAL MC SCH (21:13)
[2022-05-26] MEDS: PIPERACILLIN/TAZOB 3.375 GM 3.375 GM in DEXTROSE 5%-WATER - 50 ML IVPB SCH ×2 (01:07→09:34)
[2022-05-26] MEDS: oxyCODONE HCL 5 MG TABLET PO PRN (06:34)
[2022-05-26 07:51] LABS: ALBUMIN 2.2 g/dl (3.4-5.0); CALCIUM 8.2 mg/dL (8.5-10.1)
[2022-05-26 07:52] LABS: BLOOD UREA NITROGEN 10.9 mg/dL (7-18)
[2022-05-26 07:55] LABS: CREATININE 0.7 mg/dL (0.55-1.3)
[2022-05-26 07:56] LABS: BILIRUBIN,TOTAL 0.8 mg/dL (0.2-1); TOT PROT 5.7 g/dl (6.4-8.2)
[2022-05-26 08:17] LABS: HEMATOCRIT 31.3 % (35.4-49); HEMOGLOBIN 10.6 GM/dL (11.7-16.9); MCH 30.8 pg (25.7-33.7); MEAN CELL VOLUME 90.7 fl (80-96); MEAN PLT VOLUME 7.7 fl (7.5-11.1); PLATELET COUNT 217 10^3/uL (134-434); RBC 3.45 M/mm3 (4.00-5.60); RDW 13.5 % (11.9-15.9); WHITE BLOOD COUNT 11.9 K/mm3 (4.0-10.0)
[2022-05-26 09:29] VITALS: PULSE 63
[2022-05-26] MEDS: FERROUS SO4 325 MG TABLET (FP) PO SCH (09:33)
[2022-05-26] MEDS: amLODIPine BESYLATE 5 MG TABLET (FP) PO SCH (09:33)
[2022-05-26] MEDS: FOLIC ACID 1 MG TABLET (FP) PO SCH (09:33)
[2022-05-26] MEDS: ENOXAPARIN NA (PORCINE) 100 MG/1 ML DISP.SYRIN SQ SCH (09:33)
[2022-05-26] MEDS: PANTOPRAZOLE SODIUM 40 MG VIAL IVPUSH SCH (09:34)
[2022-05-26] MEDS: THIAMINE HCL 200 MG/2 ML VIAL IVPB SCH (10:14)
[2022-05-26 14:46] VITALS: BP 124/64; TEMP 99
[2022-05-26] MEDS ORDERED: AMOX TR/POT CLAV 875MG/125MG TABLETS (FP) PO ONE (17:00)
== END 2022-05-26 18:24 | DRG 435 ==
LOC: JER 20:06 → JERBED 05-19 01:32 → J4W 05-20 01:19
PROVIDERS: ADMIT Hospitalist
DX: C25.9 Malignant neoplasm of pancreas, unspecified (principal); I21.4 Non-ST elevation (NSTEMI) myocardial infarction; I26.99 Other pulmonary embolism without acute cor pulmonale; J90 Pleural effusion, not elsewhere classified; C78.7 Secondary malignant neoplasm of liver and intrahepatic bile duct; E51.2 Wernicke's encephalopathy; I82.402 Acute embolism and thrombosis of unspecified deep veins of left lower extremity; I10 Essential (primary) hypertension; E78.5 Hyperlipidemia, unspecified; R09.02 Hypoxemia; I25.10 Atherosclerotic heart disease of native coronary artery without angina pectoris
CPT/HCPCS: 36415; 71045-TC-FY; 71260-TC; 74177-TC; 80053; 81003; 82248; 83605; 83690; 83735; 84100; 85025; 85027; 87040; 87086; 87804; 87807; 93005; 93010; 93306-TC; 93970-TC; 94761; 97116-GP; 97162-GP; 99285-25; C9803-CS; U0003; U0005

== ENCOUNTER 2022-06-05 18:04 | Inpatient (IN) | payer OTHER ==
[2022-06-05] MEDS ORDERED: SODIUM CHLORIDE 1,000 ML IV SCH (18:15)
[2022-06-05 18:37] VITALS: BMI 26.2
[2022-06-05] MEDS ORDERED: ALTEPLASE BOLUS IVPUSH ONE ×2 (18:46→18:53)
[2022-06-05] MEDS ORDERED: ALTEPLASE 100 MG/100 ML VIAL IVPB ONE ×2 (18:46→18:53)
[2022-06-05] MEDS ORDERED: ALTEPLASE 100MG 100 ML ONE (18:54)
[2022-06-05 19:26] LABS: BASO % 0.9 % (0-2.0); EOS % 1.8 % (0-4.5); HEMOGLOBIN 11.3 GM/dL (11.7-16.9); LYMPH % 10.4 % (8-40); MCH 29.4 pg (25.7-33.7); MCHC 32.2 g/dl (32.0-35.9); MEAN CELL VOLUME 91.4 fl (80-96); MONO % 7.5 % (3.8-10.2); NEUT % 79.4 % (42.8-82.8); PLATELET COUNT 162 10^3/uL (134-434); RBC 3.83 M/mm3 (4.00-5.60); RDW 14.2 % (11.9-15.9); WHITE BLOOD COUNT 14.4 K/mm3 (4.0-10.0)
[2022-06-05 19:31] LABS: INR 1.38 (0.83-1.09); PROTHROMBIN TIME (PATIENT) 15.9 SEC (9.7-13.0)
[2022-06-05 19:34] LABS: ACTIVATED PTT 33.6 SECONDS (25.2-36.5)
[2022-06-05 20:05] LABS: CALCIUM 8.2 mg/dL (8.5-10.1); CHLORIDE 106 mmol/L (98-107); SODIUM 138 mmol/L (136-145)
[2022-06-05 20:06] LABS: EPI CELLS 3 /uL (0-25.1); HYALINE CASTS 0 /uL (0-3.1); PH,URINE 5.5 (5.0-8.0); URINE APPEARANCE CLEAR; URINE BACTERIA 1 /uL (0-1359); URINE BILIRUBIN 1+ (NEGATIVE); URINE COLOR DK YELLOW; URINE GLUCOSE (UA) NEGATIVE (NEGATIVE); URINE KETONE TRACE (NEGATIVE); URINE LEUK ESTERASE TRACE (NEGATIVE); URINE NITRITE NEGATIVE (NEGATIVE); URINE PROTEIN 1+ (NEGATIVE); URINE RBC 20 /uL (0-23.9); URINE WBC 8 /uL (0-25.8)
[2022-06-05 20:06] LABS: ALBUMIN 2.4 g/dl (3.4-5.0); ANION GAP 11 MMOL/L (8-16); CO2 21 mmol/L (21-32)
[2022-06-05 20:08] LABS: BLOOD UREA NITROGEN 17.2 mg/dL (7-18); GLUCOSE,RANDOM 115 mg/dL (74-106)
[2022-06-05 20:10] LABS: CREATININE 0.8 mg/dL (0.55-1.3); SGOT/AST 90 U/L (15-37); SGPT/ALT 79 U/L (13-61)
[2022-06-05 20:11] LABS: CHOLESTEROL 126 mg/dL (50-200)
[2022-06-05 20:12] LABS: BILIRUBIN,TOTAL 0.8 mg/dL (0.2-1); HDL CHOLESTEROL 33 mg/dL (40-60); LDL CHOLESTEROL (ONLY SJRH) 78 mg/dL (5-100); TRIGLYCERIDES 97 mg/dL (0-150)
[2022-06-05 20:26] LABS: ALK PHOS 411 U/L (45-117)
[2022-06-05] MEDS ORDERED: ONDANSETRON 4 MG/2 ML VIAL ONE ×2 (22:32→23:17)
[2022-06-05] MEDS ORDERED: RAPID SEQUENCE INTUBATION KIT NR ONE ×2 (23:08→23:47)
[2022-06-05 23:24] LABS: HEMATOCRIT 33.4 % (35.4-49); HEMOGLOBIN 11.2 GM/dL (11.7-16.9); MCH 30.4 pg (25.7-33.7); MCHC 33.7 g/dl (32.0-35.9); MEAN CELL VOLUME 90.3 fl (80-96); MEAN PLT VOLUME 7.1 fl (7.5-11.1); PLATELET COUNT 197 10^3/uL (134-434); RBC 3.69 M/mm3 (4.00-5.60); RDW 14.5 % (11.9-15.9); WHITE BLOOD COUNT 21.8 K/mm3 (4.0-10.0)
[2022-06-05 23:38] LABS: INR 1.99 (0.83-1.09); PROTHROMBIN TIME (PATIENT) 23.1 SEC (9.7-13.0)
[2022-06-05] MEDS ORDERED: DEXAMETHASONE SOD PHOSPHATE 10 MG/1 ML VIAL ONE (23:38)
[2022-06-05 23:41] LABS: ACTIVATED PTT 27.5 SECONDS (25.2-36.5)
[2022-06-05] MEDS ORDERED: DEXAMETHASONE SOD PHOSPHATE 10 MG/1 ML VIAL IVPUSH ONE (23:42)
[2022-06-05 23:45] LABS: BLOOD UREA NITROGEN 19.5 mg/dL (7-18); CALCIUM 8.9 mg/dL (8.5-10.1)
[2022-06-05 23:47] LABS: ALBUMIN 2.6 g/dl (3.4-5.0)
[2022-06-05 23:50] LABS: BILIRUBIN,TOTAL 1.2 mg/dL (0.2-1); CREATININE 1.1 mg/dL (0.55-1.3); TOT PROT 6.7 g/dl (6.4-8.2)
[2022-06-06] MEDS ORDERED: MORPHINE SULFATE/0.9% NACL/PF 100 MG/100 ML BAG IVPB SCH ×2 (08:00)
[2022-06-06 08:29] VITALS: TEMP 97.6
[2022-06-06 08:31] VITALS: BP 76/62; PULSE 0; RESP 0
[2022-06-06] MEDS ORDERED: MUPIROCIN 2% TOPICAL OINTMENT FOR DECOLONIZATION NS SCH (10:00)
[2022-06-06] MEDS ORDERED: CHLORHEXIDINE GLUCONATE 4% CLEANSER FOR DECOLONIZATION TP SCH (22:00)
== END 2022-06-06 08:00 | disposition expired | DRG 61 ==
LOC: JER 18:04 → JERBED 19:15 → JICU 22:34
PROVIDERS: ADMIT Internal Medicine Pulmonary Disease; ATTEND Internal Medicine Pulmonary Disease
DX: I63.512 Cerebral infarction due to unspecified occlusion or stenosis of left middle cerebral artery (principal); G93.6 Cerebral edema; I61.9 Nontraumatic intracerebral hemorrhage, unspecified; G81.91 Hemiplegia, unspecified affecting right dominant side; C25.2 Malignant neoplasm of tail of pancreas; C78.7 Secondary malignant neoplasm of liver and intrahepatic bile duct; R47.01 Aphasia; R29.810 Facial weakness; R11.10 Vomiting, unspecified; I10 Essential (primary) hypertension; E78.5 Hyperlipidemia, unspecified; Z86.718 Personal history of other venous thrombosis and embolism; Z79.01 Long term (current) use of anticoagulants; Z86.711 Personal history of pulmonary embolism; I25.2 Old myocardial infarction; H53.461 Homonymous bilateral field defects, right side; I25.10 Atherosclerotic heart disease of native coronary artery without angina pectoris
CPT/HCPCS: 36415; 70450-TC; 70496-TC; 70498-TC; 71045-TC-FY; 80053; 80061; 81003; 82550; 82962; 83036; 84484; 85025; 85027; 85610; 85730; 86850; 86900; 86901; 87086; 99291; C9803-CS; J1100; J2997; U0003; U0005